=== PATIENT | female | born 1980 ===

== ENCOUNTER 2020-06-15 17:44 | Outpatient (REF) | payer MEDICAID, SELFPAY ==
--- NOTE | 2020-06-15 18:15 | MR_ITS ---
EXAMINATION: MR LUMBAR SPINE WITHOUT CONTRAST CLINICAL INFORMATION: Mononeuropathy of the bilateral lower limbs. COMPARISON: Lumbar spine radiographs from 09/14/2009. TECHNIQUE: MRI of the lumbar spine was obtained using routine sequences without contrast. FINDINGS: Normal anatomic alignment. The vertebral body heights are maintained. The intervertebral disc height and signal is largely maintained. Minimal degenerative disc disease from T12-L1. Minimal endplate edema within the anterior superior corners of L2, L3, and L5 and anterior inferior corner of L4. Otherwise, normal homogeneous marrow signal throughout. The conus medullaris terminates at the level of L1. The distal spinal cord is normal in appearance. No significant abnormalities of the paraspinal musculature. Limited evaluation of the intra-abdominal structures without significant abnormalities. The abdominal aorta is of normal contour and caliber. AXIAL SPINAL LEVELS: L1-L2: Normal annular contour. There is no facet joint arthropathy. There is no neural foraminal stenosis. There is no spinal canal stenosis. L2-L3: Shallow diffuse disc bulge. There is no facet joint arthropathy. There is no neural foraminal stenosis. There is no spinal canal stenosis. L3-L4: Shallow diffuse disc bulge. There is no facet joint arthropathy. There is no neural foraminal stenosis. There is no spinal canal stenosis. L4-L5: Mild diffuse disc bulge. There is mild to moderate bilateral facet joint arthropathy. Tiny (0.2 cm) T2 hyperintense synovial cyst posterior to the left facet joint. There is minimal narrowing of the neural foramina bilaterally. There is no spinal canal stenosis. L5-S1: Mild diffuse disc bulge. There is mild to moderate bilateral facet joint arthropathy. There is minimal narrowing of the neural foramina bilaterally. There is no spinal canal stenosis. MR/MR lumbar spine wo con IMPRESSION: Minimal multilevel degenerative changes of the lumbar spine. No evidence of spinal canal stenosis or nerve root compression.
== END 2020-06-15 17:45 | disposition home or self-care (01) ==
LOC: HO.MRI 17:44
PROVIDERS: PCP Nurse Practitioner Primary Care; Visit Provider Nurse Practitioner Primary Care
DX: G57.93 Unspecified mononeuropathy of bilateral lower limbs (principal); M54.41 Lumbago with sciatica, right side; M54.42 Lumbago with sciatica, left side
CPT/HCPCS: 72148

== ENCOUNTER 2021-03-15 09:35 | Emergency (ER) | payer MEDICAID, SELFPAY ==
--- NOTE | ~2021-03-15 | CT_ITS ---
EXAMINATION: CT ABDOMEN AND PELVIS WITHOUT CONTRAST CLINICAL INFORMATION: Right flank pain. Hematuria COMPARISON: None TECHNIQUE: Multidetector volumetric imaging was performed from the superior aspect of the liver through the pubic symphysis. Sagittal and coronal reformatted images were obtained on the technologist's workstation. This CT examination was performed using dose optimization techniques as appropriate, variously including the following: *Automated exposure control *Adjustment of mA and/or kV according to patient size (this includes techniques or standardized protocols for targeted exams where dose is matched to indication/reason for exam; i.e. extremities or head) *Use of iterative reconstruction technique DLP: 269 mGy-cm FINDINGS: LUNG BASES: The visualized lung bases are unremarkable. LIVER, GALLBLADDER, AND BILIARY TREE: The liver is normal in size, shape, and attenuation. There are several hyperdense lesions in the right and left hepatic lobe the largest measuring 6 mm right central hepatic lobe axial image 9/3. These are most likely small cyst. No intrahepatic ductal dilatation seen. The gallbladder is unremarkable with no evidence of radiopaque gallstones, gallbladder wall thickening, or obvious pericholecystic inflammatory changes. PANCREAS: Unremarkable. SPLEEN: Unremarkable. ADRENAL GLANDS: Unremarkable. KIDNEYS AND URETERS: The kidneys are normal in size, shape, and attenuation. No hydronephrosis, hydroureter, or calculi seen. No perinephric stranding. BLADDER: Unremarkable. GASTROINTESTINAL TRACT: There is scattered stool and gas seen throughout the colon. There is a radiopaque density seen in the right lower quadrant suspicious for an appendicolith but no inflammatory changes seen. The appendix is not seen at all. ABDOMINAL WALL: No significant hernia is appreciated. LYMPH NODES: Normal. VASCULAR: Unremarkable. PELVIC VISCERA: The uterus is anteverted and appears unremarkable. OSSEOUS STRUCTURES: Unremarkable. CT/CT abdomen pelvis wo con IMPRESSION: Moderate to significant constipation. Radiopaque density in right lower quadrant is likely appendicolith however appendix is not visualized. There is no inflammatory changes right lower quadrant. There is no free fluid in the pelvis.
[2021-03-15 10:27] VITALS: BP 135/73; PULSE 71; RESP 16; TEMP 37.1; O2SAT 100; BMI 21.6
--- NOTE | 2021-03-15 11:10 | ED_ITS ---
HPI - Female Genitourinary General Chief complaint: Urogenital-Female Stated complaint: flank pain Time Seen by Provider: 03/15/21 11:10 Source: patient Mode of arrival: ambulatory Limitations: no limitations History of Present Illness HPI Narrative: completed 7 days of bactrim starting 02/17 no relief from symptoms - saw PCP MD elicited complaint: other (bilateral flank pain hematuria dysuria) Pertinent past history: recurrent UTIs Onset (ago): day(s) (7) Location of symptoms: suprapubic and low back Severity: moderate Quality of pain: aching Consistency: constant Urinary symptoms: Dysuria and Hematuria Exacerbating factors: none Relieving factors: urination Associated symptoms: nausea and back pain Related Data Previous Rx's Medication Instructions Recorded docusate sodium 100 mg capsule 100 mg PO BID PRN #30 cap 03/15/21 (Colace) magnesium citrate 150 ml PO BID PRN #296 ml 03/15/21 ondansetron 4 mg disintegrating 4 mg PO Q8H PRN #20 tab 03/15/21 tablet sennosides 8.6 mg capsule (senna) 8.6 mg PO BEDTIME PRN #30 cap 03/15/21 Allergies Allergy/AdvReac Type Severity Reaction Status Date / Time iodine [IODINE] Allergy Unknown PER MD Unverified 04/08/20 16:41 iodine Allergy Unknown Facial/Throat Uncoded 12/25/17 00:00 Swelling SEAFOOD Allergy Unknown ANAPHYLAXIS Uncoded 04/08/20 16:41 shellfish Allergy Unknown Facial/Throat Uncoded 12/25/17 00:00 Swelling Review of Systems Review of Systems: Constitutional : No Fever, No Chills ENT/Mouth : No sore throat Eyes: No Eye Pain, No Swelling, No Redness Cardiovascular : No Chest Pain, No SOB Respiratory : No Cough, No Sputum, No Wheezing Gastrointestinal : positive Nausea, no Vomiting, No Diarrhea, positive abdominal pain Genitourinary : positive Dysuria, positive urinary frequency, positive Hematuria, positive Flank Pain, no hesitancy Musculoskeletal : No joint pain, No Myalgias Skin : No Skin Lesions, No rash Neuro : No Weakness, No Numbness, No Headache Psych : No Anxiety/Panic, No Depression Heme/Lymph: No Bruising, No Lymphadenopathy Endocrine : No Polyuria, No Polydipsia All other systems reviewed and are negative [facility] Past Medical History Attestation statement: The following information was validated with the patient. Medical History Asthma Herpes Hypothyroid Lyme disease Surgical History Tubal ligation status Social History Social History Alcohol intake: current Alcohol intake frequency: holidays/special occasions only Patient Tobacco Use Status: Never used Tobacco Use of substances other than those prescribed or required for medical reasons: Yes Substance Use Type: Marijuana Advance Directives: No Advance Directives Information Provided: No Patient : No Physical Exam Vital Signs: Vital Signs: Last Vital Signs Temp 99.0 F 03/15/21 12:41 Pulse 72 03/15/21 12:41 Resp 27 H 03/15/21 12:41 BP 100/44 L 03/15/21 12:41 Pulse Ox 99 03/15/21 12:41 Body Mass Index 21.6 Appearance: Alert. Oriented X3. No acute distress. Eyes: Pupils equal, round and reactive to light. ENT: Pharynx normal. Neck: Normal inspection. Neck supple. CVS: Normal heart rate and rhythm. Pulses normal. Respiratory: No respiratory distress. Breath sounds normal. Abdomen: Soft and mild suprapubic ttp mild bilateral CVA ttp Skin: Skin warm and dry. Normal skin color. Normal skin turgor. Extremities: No lower extremity edema. No calf ttp Neuro: Oriented X 3. No motor deficit. No sensory deficit. Course Course Course Narrative: UA clear likely constipation causing her issues MDM - Female Genitourinary MDM Narrative Medical decision making narrative: 40 yo female with hx of recent UTI completed abx still c/o urinary symptoms and c/o flank pain at this time labs, repeat UA, CT scan for stone, dispo per results and findings. Lab Data Result diagrams: 03/15/21 11:27 03/15/21 11:27 Labs: Lab Results 03/15/21 03/15/21 03/15/21 Range/Units 11:07 11:07 11:27 WBC 5.9 (4.8-10.8) X10*3/uL RBC 4.07 L (4.20-5.50) X10*6/uL Hgb 11.7 L (12.0-16.0) g/dl Hct 35.5 L (37-47) % MCV 87.2 (80-98) fL MCH 28.7 (27.0-33.0) pg MCHC 33.0 (31.0-35.0) g/dl RDW 12.7 (11.0-16.0) % Plt Count 206 (160-400) X10*3/uL MPV 10.5 (9.4-12.3) fL Immature Gran % (Auto) 0.2 (0.0-0.4) % Neut % (Auto) 58.4 (45-73) % Lymph % (Auto) 30.1 (20-40) % [place] % (Auto) 8.8 (2-11) % Eos % (Auto) 2.2 (0-4) % Baso % (Auto) 0.3 (0-2) % Lymph # (Auto) 1.8 (1.2-4.9) X10*3/uL [place] # (Auto) 0.5 (0.1-1.2) X10*3/uL Eos # (Auto) 0.1 (0.0-0.4) X10*3/uL Baso # (Auto) 0.0 (0.0-0.2) X10*3/uL Abs Immat Gran (auto) 0.01 (0.00-0.03) X10*3/uL Absolute Neuts (auto) 3.5 (2.0-8.3) X10*3/uL Absolute Nucleated RBC 0.000 (0.0-0.012) X10*3/uL Nucleated RBC % (auto) 0.0 (0.0-0.2) /100WBC Sodium (135-145) mmol/L Potassium (3.3-5.1) mmol/L Chloride (96-108) mmol/L Carbon Dioxide (22-29) mmol/L Anion Gap (12-20) BUN (9-16) mg/dL Creatinine (0.5-1.4) mg/dL Estim Creat Clear Calc Estimated GFR Random Glucose (60-115) mg/dL Calcium (8.4-10.2) mg/dL Magnesium (1.6-2.6) mg/dL Total Bilirubin (0.0-1.0) mg/dL Direct Bilirubin (0.0-0.5) mg/dL AST (5-31) U/L ALT (0-31) U/L Alkaline Phosphatase (39-117) U/L Total Protein (6.5-8.0) g/dL Albumin (3.5-5.0) g/dL Lipase (8-78) U/L Urine Color YELLOW Urine Appearance CLOUDY Urine pH 7.5 (5.0-8.0) Ur Specific [place] 1.020 (1.005-1.025) Urine Protein NEG (NEG-TRACE) MG/DL Urine Glucose (UA) NEG (NEG) MG/DL Urine Ketones NEG (NEG) MG/DL Urine Blood NEG (NEG) Urine Nitrite NEG (NEG) Ur Leukocyte Esterase NEG (NEG) Urine RBC 0 (0) /HPF Urine WBC 0-2 (0-4) /HPF Ur Squamous Epith Cells 1+ /LPF Amorphous Sediment 3+ /LPF Urine Bacteria 1+ /LPF Urine Test NEGATIVE (NEGATIVE) 03/15/21 Range/Units 11:27 WBC (4.8-10.8) X10*3/uL RBC (4.20-5.50) X10*6/uL Hgb (12.0-16.0) g/dl Hct (37-47) % MCV (80-98) fL MCH (27.0-33.0) pg MCHC (31.0-35.0) g/dl RDW (11.0-16.0) % Plt Count (160-400) X10*3/uL MPV (9.4-12.3) fL Immature Gran % (Auto) (0.0-0.4) % Neut % (Auto) (45-73) % Lymph % (Auto) (20-40) % [place] % (Auto) (2-11) % Eos % (Auto) (0-4) % Baso % (Auto) (0-2) % Lymph # (Auto) (1.2-4.9) X10*3/uL [place] # (Auto) (0.1-1.2) X10*3/uL Eos # (Auto) (0.0-0.4) X10*3/uL Baso # (Auto) (0.0-0.2) X10*3/uL Abs Immat Gran (auto) (0.00-0.03) X10*3/uL Absolute Neuts (auto) (2.0-8.3) X10*3/uL Absolute Nucleated RBC (0.0-0.012) X10*3/uL Nucleated RBC % (auto) (0.0-0.2) /100WBC Sodium 138 (135-145) mmol/L Potassium 3.9 (3.3-5.1) mmol/L Chloride 105 (96-108) mmol/L Carbon Dioxide 24 (22-29) mmol/L Anion Gap 13 (12-20) BUN 13 (9-16) mg/dL Creatinine 0.70 (0.5-1.4) mg/dL Estim Creat Clear Calc 64.1 Estimated GFR > 60 Random Glucose 92 (60-115) mg/dL Calcium 9.5 (8.4-10.2) mg/dL Magnesium 2.1 (1.6-2.6) mg/dL Total Bilirubin 0.4 (0.0-1.0) mg/dL Direct Bilirubin 0.2 (0.0-0.5) mg/dL AST 17 (5-31) U/L ALT 10 (0-31) U/L Alkaline Phosphatase 50 (39-117) U/L Total Protein 7.1 (6.5-8.0) g/dL Albumin 4.3 (3.5-5.0) g/dL Lipase 52 (8-78) U/L Urine Color Urine Appearance Urine pH (5.0-8.0) Ur Specific [place] (1.005-1.025) Urine Protein (NEG-TRACE) MG/DL Urine Glucose (UA) (NEG) MG/DL Urine Ketones (NEG) MG/DL Urine Blood (NEG) Urine Nitrite (NEG) Ur Leukocyte Esterase (NEG) Urine RBC (0) /HPF Urine WBC (0-4) /HPF Ur Squamous Epith Cells /LPF Amorphous Sediment /LPF Urine Bacteria /LPF Urine Test (NEGATIVE) Discharge Plan Discharge Clinical Impression: Constipation Patient Disposition: Home, Self-Care Instructions: Constipation (ED) Additional Instructions: return to ED for any worsening symptoms or concerns there were no stones and no UTI, you have a significant amount of constipation on CT scan Prescriptions: New docusate sodium [Colace] 100 mg capsule 100 mg PO BID PRN (Reason: constipation) Qty: 30 RF: 0 ondansetron 4 mg tablet,disintegrating 4 mg PO Q8H PRN (Reason: nausea and vomiting) Qty: 20 RF: 0 senna 8.6 mg capsule 8.6 mg PO BEDTIME PRN (Reason: constipation) Qty: 30 RF: 0 magnesium citrate Solution 150 ml PO BID PRN (Reason: constipation) Qty: 296 RF: 0 Stand Alone Forms: Work/School Release
[2021-03-15 11:17] LABS: Glucose Urine UA NEG (NEG); Leukocyte Esterase Urine NEG (NEG); Nitrite Urine NEG (NEG); PH 7.5 (5.0-8.0); Urine Blood NEG (NEG); Urine Ketones NEG (NEG); Urine Protein NEG (NEG-TRACE)
[2021-03-15 11:23] LABS: UPreg QC Valid YES; Urine Pregnancy NEGATIVE (NEGATIVE)
[2021-03-15 11:24] LABS: Appearance Urine CLOUDY; Color Urine YELLOW
[2021-03-15] MEDS: Ondansetron ODT 4 MG TAB.RAPDIS TRANSLINGU (11:31)
[2021-03-15 11:38] LABS: MANUAL DIFF FLAG NO
[2021-03-15 11:40] LABS: Basophils Percent Auto 0.3 % (0-2); Eosinophils Absolute Auto 0.1 X10*3/uL (0.0-0.4); Eosinophils Percent Auto 2.2 % (0-4); Hematocrit 35.5 % (37-47); Hemoglobin 11.7 g/dl (12.0-16.0); Imm Gran Abs Auto 0.01 X10*3/uL (0.00-0.03); Imm Gran Pct Auto 0.2 % (0.0-0.4); Lymphocytes Absolute Auto 1.8 X10*3/uL (1.2-4.9); Lymphocytes Percent Auto 30.1 % (20-40); Mean Corpuscular Hemoglobin 28.7 pg (27.0-33.0); Mean Corpuscular Volume 87.2 fL (80-98); Mean Platelet Volume 10.5 fL (9.4-12.3); Monocytes Absolute Auto 0.5 X10*3/uL (0.1-1.2); Monocytes Percent Auto 8.8 % (2-11); Neutrophils Absolute Auto 3.5 X10*3/uL (2.0-8.3); Neutrophils Percent Auto 58.4 % (45-73); Platelet Count 206 X10*3/uL (160-400); Red Blood Count 4.07 X10*6/uL (4.20-5.50); Red Cell Distribution Width 12.7 % (11.0-16.0); White Blood Count 5.9 X10*3/uL (4.8-10.8)
[2021-03-15 11:45] LABS: Amorphous Sediment Urine 3+ /LPF; Bacteria Urine 1+ /LPF; RBC Urine 0 /HPF (0); Squamous Epithelial Cell Urine 1+ /LPF; WBC Urine 0-2 /HPF (0-4)
[2021-03-15] MEDS: Phenazopyridine HCL 200 MG TABLET PO (11:47)
[2021-03-15] MEDS: HYDROcodone Bit/Acetam 5/325 TABLET 1 TAB PO (11:48)
[2021-03-15 12:06] LABS: Alanine Aminotransferase 10 U/L (0-31); Albumin Level 4.3 g/dL (3.5-5.0); Alkaline Phosphatase 50 U/L (39-117); Anion Gap 13 (12-20); Aspartate Amino Transferase 17 U/L (5-31); Bilirubin Direct 0.2 mg/dL (0.0-0.5); Bilirubin Total 0.4 mg/dL (0.0-1.0); Blood Urea Nitrogen 13 mg/dL (9-16); Calcium 9.5 mg/dL (8.4-10.2); Carbon Dioxide 24 mmol/L (22-29); Chloride 105 mmol/L (96-108); Creatinine Clr Calc Pharmacy 64.1; Estimated Glomerular Filt Rate > 60; Glucose Random 92 mg/dL (60-115); Lipase 52 U/L (8-78); Magnesium 2.1 mg/dL (1.6-2.6); Potassium 3.9 mmol/L (3.3-5.1); Sodium 138 mmol/L (135-145); Total Protein 7.1 g/dL (6.5-8.0)
[2021-03-15 12:41] VITALS: BP 100/44; PULSE 72; RESP 27; TEMP 37.2; O2SAT 99
== END 2021-03-15 13:38 | disposition home or self-care (01) ==
PROVIDERS: Emergency Provider Emergency Medicine
DX: K59.00 Constipation, unspecified (principal); R10.30 Lower abdominal pain, unspecified
CPT/HCPCS: 36415; 74176; 80048; 80076; 81001; 81025; 83690; 83735; 85025; 99284

== ENCOUNTER 2021-05-12 16:18 | Outpatient (REF) | payer MEDICAID, SELFPAY ==
--- NOTE | ~2021-05-12 | XR_ITS ---
EXAMINATION: XR LUMBOSACRAL SPINE WITH OBLIQUES CLINICAL INFORMATION: Lumbago. Left-sided sciatica. COMPARISON: Lumbosacral spine done on 09/14/2009. TECHNIQUE: AP, both oblique, and lateral views of the lumbar spine. Lateral view of the lumbosacral junction. FINDINGS: The vertebral bodies and posterior elements are normal. The disc spaces are preserved and the vertebral alignment is normal. The paraspinal soft tissues are normal. Incidental note is made of radiopaque densities within the pelvis likely represent tubal ligation rings. XR/XR lumbar spine 4V min IMPRESSION: Unremarkable radiographic appearance of the lumbosacral spine, unchanged since 09/14/2009.
== END 2021-05-12 16:19 | disposition home or self-care (01) ==
LOC: HO.XRAY 16:18
PROVIDERS: Absent Provider Nurse Practitioner Primary Care; PCP Nurse Practitioner Primary Care; Visit Provider Internal Medicine
DX: M54.42 Lumbago with sciatica, left side (principal)
CPT/HCPCS: 72110

== ENCOUNTER 2021-06-27 13:09 | Outpatient (REF) | payer MEDICAID, SELFPAY ==
[2021-06-28 05:51] LABS: CT PCR NOT DETECTED (Not Detect.); NG PCR NOT DETECTED (Not Detect.)
[2021-06-28 10:21] LABS: BV Int Neg Control Negative (Negative); BV Int Pos Control Positive (Positive)
== END 2021-06-27 13:10 | disposition home or self-care (01) ==
LOC: HO.LAB 13:09
PROVIDERS: PCP Nurse Practitioner Primary Care; Visit Provider Advanced Practice Midwife
DX: R35.0 Frequency of micturition (principal); N89.8 Other specified noninflammatory disorders of vagina; M54.9 Dorsalgia, unspecified; Z20.2 Contact with and (suspected) exposure to infections with a predominantly sexual mode of transmission
CPT/HCPCS: 81025; 87086; 87480; 87491; 87510; 87591; 87660; 99212

== ENCOUNTER 2021-12-15 14:59 | Emergency (ER) | payer MEDICAID, SELFPAY ==
--- NOTE | ~2021-12-15 | XR_ITS ---
EXAMINATION: XR CHEST CLINICAL INFORMATION: Epigastric pain. COMPARISON: None TECHNIQUE: Frontal view of the chest was obtained. FINDINGS: No significant abnormality is noted involving the heart, lungs, mediastinum, bony thorax or soft tissues. XR/XR chest 1V IMPRESSION: No acute cardiopulmonary process.
[2021-12-15 15:40] VITALS: BP 112/69; PULSE 66; RESP 18; TEMP 36.9; O2SAT 100; BMI 21.3
--- NOTE | 2021-12-15 15:43 | ECG_ITS ---
Test Reason : CHEST DISCOMFORT Blood Pressure : / mmHG Vent. Rate : 059 BPM Atrial Rate : 059 BPM P-R Int : 144 ms QRS Dur : 074 ms QT Int : 428 ms P-R-T Axes : 057 053 041 degrees QTc Int : 423 ms Sinus bradycardia Otherwise normal ECG When compared with ECG of 07-NOV-2013 19:11, No significant change was found Referred By: Generic ED Physician Electronically Signed By:Mehrdad Rudolph
[2021-12-15 16:54] LABS: MANUAL DIFF FLAG NO
[2021-12-15 16:56] LABS: Basophils Percent Auto 0.3 % (0-2); Eosinophils Absolute Auto 0.2 X10*3/uL (0.0-0.4); Eosinophils Percent Auto 3.4 % (0-4); Hematocrit 35.6 % (37.0-47.0); Hemoglobin 11.5 g/dl (12.0-16.0); Imm Gran Abs Auto 0.01 X10*3/uL (0.00-0.03); Imm Gran Pct Auto 0.1 % (0.0-0.4); Lymphocytes Absolute Auto 2.3 X10*3/uL (1.2-4.9); Lymphocytes Percent Auto 31.7 % (20-40); Mean Corpuscular HGB Conc 32.3 g/dl (31.0-35.0); Mean Corpuscular Hemoglobin 28.5 pg (27.0-33.0); Mean Corpuscular Volume 88.3 fL (80.0-98.0); Monocytes Absolute Auto 0.7 X10*3/uL (0.1-1.2); Monocytes Percent Auto 10.1 % (2-11); Neutrophils Absolute Auto 3.9 x10*3/uL (2.0-8.3); Neutrophils Percent Auto 54.4 % (45-73); Platelet Count 227 X10*3/uL (160-400); Red Blood Count 4.03 X10*6/uL (4.20-5.50); Red Cell Distribution Width 12.7 % (11.0-16.0); White Blood Count 7.1 X10*3/uL (4.8-10.8)
[2021-12-15 17:12] LABS: Alanine Aminotransferase 11 U/L (0-31); Albumin Level 4.3 g/dL (3.5-5.0); Alkaline Phosphatase 45 U/L (39-117); Anion Gap 11 (12-20); Aspartate Amino Transferase 18 U/L (5-31); Bilirubin Total 0.6 mg/dL (0.0-1.0); Blood Urea Nitrogen 16 mg/dL (9-16); Calcium 9.4 mg/dL (8.4-10.2); Carbon Dioxide 27 mmol/L (22-29); Chloride 106 mmol/L (96-108); Creatinine Clr Calc Pharmacy 61.3; Estimated Glomerular Filt Rate > 60; Glucose Random 94 mg/dL (60-115); Potassium 3.9 mmol/L (3.3-5.1); Sodium 140 mmol/L (135-145); Total Protein 7.3 g/dL (6.5-8.0)
[2021-12-15 17:17] LABS: COVID-19 Test Negative (Negative); IDNOW Serial# 16C4AD1C; Influenza A Negative (Negative); Influenza B2 Negative (Negative)
[2021-12-15 17:17] LABS: Troponin-I High Sensitivity < 3.5 ng/L (<3.5-17.0)
== END 2021-12-15 21:25 | disposition left against medical advice (07) ==
PROVIDERS: Emergency Provider Emergency Medicine; PCP Nurse Practitioner Primary Care
DX: R07.89 Other chest pain (principal); Z20.822 Contact with and (suspected) exposure to COVID-19
CPT/HCPCS: 71045; 80053; 84484; 85025; 87502; 87635; 93005; 99281; 99283

== ENCOUNTER → 2022-05-25 13:58 | Outpatient (BNVA) | payer OTHER, SELFPAY | PROVIDERS: PCP Nurse Practitioner Primary Care; Visit Provider Physician Assistant Medical | DX: M25.512 Pain in left shoulder (principal); M54.2 Cervicalgia | CPT/HCPCS: 99203 ==

== ENCOUNTER 2022-08-03 09:48 | Outpatient (REF) | payer MEDICAID, SELFPAY ==
[2022-08-08 16:30] LABS: HPV mRNA E6/E7 rflx Not Detected (Not Detected)
== END 2022-08-03 09:49 | disposition home or self-care (01) ==
LOC: HO.LNP 09:48
PROVIDERS: PCP Nurse Practitioner Primary Care; Visit Provider Advanced Practice Midwife
DX: Z01.419 Encounter for gynecological examination (general) (routine) without abnormal findings (principal); Z11.51 Encounter for screening for human papillomavirus (HPV); Z87.42 Personal history of other diseases of the female genital tract
CPT/HCPCS: 0353U; 86780; 86803; 87340; 87389; 87480; 87510; 87624; 87660; 88142

== ENCOUNTER 2022-08-03 10:41 | Outpatient (REF) | payer MEDICAID, SELFPAY ==
[2022-08-03 15:29] LABS: CT PCR NOT DETECTED (Not Detect.); NG PCR NOT DETECTED (Not Detect.)
[2022-08-04 08:39] LABS: HBsAGNum1 0.33 S/CO (0.00-0.99); HIV AB/AG Nonreactive (Nonreactive); HIV Num 1 0.07 S/CO (0.00-0.99); Hepatitis B Surface Antigen Negative (Negative); ~HepC Num1 0.27 S/CO (0.00-0.79); ~Hepatitis C Antibody Nonreactive (Nonreactive)
[2022-08-04 08:55] LABS: Syphilis Screen Nonreactive (Nonreactive)
[2022-08-04 12:30] LABS: BV Int Neg Control Negative (Negative); BV Int Pos Control Positive (Positive)
== END 2022-08-03 10:42 | disposition home or self-care (01) ==
LOC: HO.LAB 10:41
PROVIDERS: PCP Nurse Practitioner Primary Care; Visit Provider Advanced Practice Midwife
DX: Z11.3 Encounter for screening for infections with a predominantly sexual mode of transmission (principal); Z11.4 Encounter for screening for human immunodeficiency virus [HIV]
CPT/HCPCS: 0353U; 86780; 86803; 87340; 87389; 87480; 87510; 87660

== ENCOUNTER 2023-06-26 10:36 | Outpatient (REF) | payer MEDICAID, SELFPAY ==
[2023-06-26 18:16] LABS: CT PCR NOT DETECTED (Not Detect.); NG PCR NOT DETECTED (Not Detect.)
[2023-06-27 14:21] LABS: BV Int Neg Control Negative (Negative); BV Int Pos Control Positive (Positive)
== END 2023-06-26 10:37 | disposition home or self-care (01) ==
LOC: HO.LNP 10:36
PROVIDERS: PCP Nurse Practitioner Primary Care; Visit Provider Advanced Practice Midwife
DX: N92.6 Irregular menstruation, unspecified (principal); Z11.3 Encounter for screening for infections with a predominantly sexual mode of transmission; Z32.02 Encounter for pregnancy test, result negative; Z79.899 Other long term (current) drug therapy; Z87.42 Personal history of other diseases of the female genital tract
CPT/HCPCS: 0353U; 81025; 87480; 87510; 87660; 99212

== ENCOUNTER 2023-06-26 10:36 | Outpatient (AMB) | payer MEDICAID, SELFPAY ==
[2023-06-26 10:41] VITALS: BP 132/80; BMI 22.8
--- NOTE | 2023-06-26 10:41 | MHC.OFFVIS ---
Intake Vital Signs 06/26/23 10:41 Height 4 ft 7 in Weight 98 lb BMI 22.8 BP 132/80 Intake Visit Reasons: std testing Intake Note: STD testing and blood work Senior Technical Support Engineer Required: No Information Interpreted: non-clinical & clinical Human Resources Director: Human Resources Director Present (Klaudia) Allergies iodine [IODINE] Allergy (Unknown, Verified 06/26/23 10:44) PER MD iodine Allergy (Unknown, Uncoded 06/26/23 10:44) Facial/Throat Swelling SEAFOOD Allergy (Unknown, Uncoded 06/26/23 10:44) ANAPHYLAXIS shellfish Allergy (Unknown, Uncoded 06/26/23 10:44) Facial/Throat Swelling Medication List - Last Reconciled 06/26/23 by Susan Deleon CNM baclofen 10 mg PO BID cholecalciferol (vitamin D3) 25 mcg PO DAILY cholecalciferol (vitamin D3) (Vitamin D3) 50 mcg PO DAILY duloxetine 30 mg PO QAM ferrous gluconate 225 mg PO DAILY oxycodone-acetaminophen 5-325 mg 1 tab PO Q6H PRN tramadol 50 mg PO BID PRN valacyclovir (Valtrex) 500 mg PO Q12H vitamin B complex (B Complex-Vitamin B12 tablet) 1 tab PO DAILY Is last menstrual period known: Yes Last menstrual period: 05/23/23 Post menopausal: No HPI std testing HPI Details Patient is here for STD testing she is not have any particular symptoms but she said she had a situation and she just wants to get checked she said that she has had her tubes tied but also she had had a positive test followed by a negative and so she wants that checked as well test done at the beginning of this visit is now negative. Her last menstrual period was May 23 so she has a little bit late. [facility] Medical History Neuropathy Depression Lyme disease Hypothyroid Herpes Asthma Surgical History Tubal ligation status Social History Alcohol intake: current Alcohol intake frequency: holidays/special occasions only Patient Tobacco Use Status: Never used Tobacco Substance Use Type: Marijuana Gender identity: Female Female Reproductive History Menstrual Age of Menarche: 15 Date of last menstrual period: 05/23/23 control method: other (tubal ligation) Total pregnancies: 4 Full term: 2 Number of Living Children: 2 Ab induced: 2 Date of last pap smear: 08/03/22 (negative) History of abnormal pap smear: Yes (2017 2008 2007 ASCUS, 2008 DOROTHY 1) Physical Exam Vital Signs: Last Vital Signs BP 132/80 06/26/23 10:41 BMI result Body Mass Index 22.8 External Female Exam: normal external appearance and normal appearance of the urethra Speculum Exam - Vagina: normal appearance of the vagina and normal vaginal discharge Speculum Exam - Cervix: normal appearance of the cervix and Cervical os closed Results AMB Test Urine AMB Test Urine Negative Last Edit by MERE Montiel on 06/26/23 10:52 Results Reviewed Results Reviewed: Name: Becki Torres Age/Sex: 41/F Attending: Susan Deleon CNM : 1980 Submitted by: Susan Deleon CNM Copies to: HEAV[facility] OTTO NP MR #: [id number] Status: DEP REF Collected: 08/03/22 Location: [facility] Received: 08/03/22 Interpretation Satisfactory for evaluation. Negative for intraepithelial lesion or malignancy. HPV mRNA E6/E7: NOT DETECTED This assay detects E6/E7 viral messenger RNA (mRNA) from 14 high-risk HPV types (16, 18, 31, 33, 35, 39, 45, 51, 52, 56, 58, 59, 66, 68) HPV testing performed by [employer], [place], [place]. See reference laboratory portion of the EMR for entire report. Clinical Information LMP: 07/24/22 Previous PAP test: 12/26/2017, Abnormal Material Received ThinPrep-Cervical Copies To Susan Deleon [address] [place] [address] HEAVEN OTTO NP [address] [facility] [address] [place] [address] Electronically Signed By: Hetal Iqbal 08/13/22 [id number] The Pap Test is a screening procedure with the inherent possibility of both false negative and false positive results. Results should be interpreted in the context of historic and current clinical findings. Reliability of the Pap Test is enhanced by performing the test on a regular repetitive basis. Patient: Becki Torres Age/Sex: 41/F MR#: [id number] Page 1 of 1 Preg test done here negative. Assessment & Plan Assessment & Plan (1) Hx of abnormal cervical Pap smear: Comment: 08/03/2022 Pap is negative with negative HPV. Code(s): Z87.42 - Personal history of other diseases of the female genital tract (2) Screen for sexually transmitted diseases: Code(s): Z11.3 - Encounter for screening for infections with a predominantly sexual mode of transmission (3) Late menses: Comment: preg test neg Code(s): N92.6 - Irregular menstruation, unspecified Plan Testing done for gonorrhea chlamydia trichomoniasis Gardnerella and Sweta. Her exam is completely normal testing ordered at her request for HIV hep B hep C and syphilis patient will go to the lab now. She says she is on the portal so she can obtain negative results there would call her her if anything were positive. test is negative.. Orders: Orders AMB HCG Urine Test Today Z32.02 - Encounter for test, result negative Hepatitis B Surface Antigen Today N92.6 - Irregular menstruation, unspecified, Z11.3 - Encounter for screening for infections with a predominantly sexual mode of transmission, Z87.42 - Personal history of other diseases of the female genital tract Hepatitis C Antibody Today N92.6 - Irregular menstruation, unspecified, Z11.3 - Encounter for screening for infections with a predominantly sexual mode of transmission, Z87.42 - Personal history of other diseases of the female genital tract HIV Ab/Ag Today N92.6 - Irregular menstruation, unspecified, Z11.3 - Encounter for screening for infections with a predominantly sexual mode of transmission, Z87.42 - Personal history of other diseases of the female genital tract Syphilis Screen Today N92.6 - Irregular menstruation, unspecified, Z11.3 - Encounter for screening for infections with a predominantly sexual mode of transmission, Z87.42 - Personal history of other diseases of the female genital tract Coding Level of Care Code Est Pt Level 3 (37926) Diagnoses Hx of abnormal cervical Pap smear Z87.42 Screen for sexually transmitted diseases Z11.3 Late menses N92.6
== END 2023-06-26 11:44 | disposition home or self-care (01) ==
LOC: HO.HWS 10:36
PROVIDERS: PCP Nurse Practitioner Primary Care; Visit Provider Advanced Practice Midwife
DX: Z87.42 Personal history of other diseases of the female genital tract (principal); Z11.3 Encounter for screening for infections with a predominantly sexual mode of transmission; N92.6 Irregular menstruation, unspecified; Z32.02 Encounter for pregnancy test, result negative
CPT/HCPCS: 99213

== ENCOUNTER 2023-12-03 12:04 | Outpatient (REF) | payer MEDICAID, SELFPAY ==
[2023-12-03 13:35] VITALS: BP 105/68; PULSE 73; RESP 16; TEMP 37.2; O2SAT 100
[2023-12-03 13:43] VITALS: BMI 21.8
[2023-12-03 14:43] VITALS: BP 136/65; PULSE 71; O2SAT 99
== END 2023-12-03 12:05 | disposition home or self-care (01) ==
LOC: HO.MS 12:04
PROVIDERS: PCP Nurse Practitioner Primary Care; Visit Provider Ophthalmology
PROC: (CPT 67840; principal; 2023-12-03 14:20)
DX: D23.111 Other benign neoplasm of skin of right upper eyelid, including canthus (principal)
CPT/HCPCS: 67840; 88304; 88305

== ENCOUNTER 2023-12-05 09:38 | Outpatient (REF) | payer MEDICAID, SELFPAY ==
[2023-12-06 02:09] LABS: CT PCR NOT DETECTED (Not Detect.); NG PCR NOT DETECTED (Not Detect.)
[2023-12-06 11:51] LABS: Bacterial Vaginosis PCR NEGATIVE (Negative); Candida Group PCR DETECTED (Not Detect); Candida glab krusei PCR NOT DETECTED (Not Detect); Trichomonas vaginalis PCR NOT DETECTED (Not Detect)
[2023-12-12 05:24] LABS: HPV 16 RNA NOT DETECTED (NOT DETECTED); HPV mRNA E6/E7 rflx Detected (Not Detected)
== END 2023-12-05 09:39 | disposition home or self-care (01) ==
LOC: HO.LAB 09:38
PROVIDERS: PCP Nurse Practitioner Primary Care; Visit Provider Advanced Practice Midwife
DX: Z01.419 Encounter for gynecological examination (general) (routine) without abnormal findings (principal); B37.31 Acute candidiasis of vulva and vagina; N63.12 Unspecified lump in the right breast, upper inner quadrant; N63.10 Unspecified lump in the right breast, unspecified quadrant; Z20.2 Contact with and (suspected) exposure to infections with a predominantly sexual mode of transmission; Z12.39 Encounter for other screening for malignant neoplasm of breast; Z98.51 Tubal ligation status; Z87.42 Personal history of other diseases of the female genital tract
CPT/HCPCS: 0352U; 0353U; 87624; 87625; 88142; 99396

== ENCOUNTER 2023-12-05 09:38 | Outpatient (AMB) | payer MEDICAID, SELFPAY ==
[2023-12-05 09:41] VITALS: BP 100/60; BMI 21.1
--- NOTE | 2023-12-05 09:41 | MHC.OFFVIS ---
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: Renewable Energy Division Manager Present Allergies iodine [IODINE] Allergy (Unknown, Verified 12/05/23 09:41) PER MD iodine Allergy (Unknown, Uncoded 12/05/23 09:41) Facial/Throat Swelling SEAFOOD Allergy (Unknown, Uncoded 12/05/23 09:41) ANAPHYLAXIS shellfish Allergy (Unknown, Uncoded 12/05/23 09:41) Facial/Throat Swelling Medication List - Last Reconciled 12/05/23 by Susan Deleon CNM amoxicillin 500 mg PO BID cholecalciferol (vitamin D3) 25 mcg PO DAILY cholecalciferol (vitamin D3) (Vitamin D3) 50 mcg PO DAILY oxycodone-acetaminophen 5-325 mg 1 tab PO Q6H PRN tramadol 50 mg PO BID PRN valacyclovir (Valtrex) 500 mg PO Q12H vitamin B complex (B Complex-Vitamin B12 tablet) 1 tab PO DAILY Is last menstrual period known: Yes Last menstrual period: 11/03/23 Do you need a note to return to daycare/school/sports/work: No PFSH Medical History Neuropathy Depression Lyme disease Hypothyroid Herpes Asthma Surgical History Tubal ligation status Social History Alcohol intake: current Alcohol intake frequency: holidays/special occasions only Patient Tobacco Use Status: Never used Tobacco Substance Use Type: Marijuana Gender identity: Female Female Reproductive History Menstrual Age of Menarche: 15 Duration of menses: 3-5 days Date of last menstrual period: 11/03/23 control method: permanent sterilization Total pregnancies: 4 Full term: 2 Date of last pap smear: 06/12/23 (negative) History of abnormal pap smear: Yes (2018,abn,2009 DOROTHY 1,2008 ASCUS) Physical Exam Vital Signs: Last Vital Signs BP 100/60 12/05/23 09:41 BMI result Body Mass Index 21.1 Const General: healthy appearing, comfortable, no acute distress, well developed and alert Nutritional Appearance: average body habitus Orientation/consciousness: patient oriented x3 Limitations: no limitations HEENT Other: Patient is visibly congested sinus infection Additionally she has scabbed area extending from right eyebrow towards nose where mole was just removed. Head: Yes normocephalic Neck Neck: Yes normal visual inspection Chest Other: Irregular masses palpable left breast 01:00 o'clock firm, irregular masses right breast also 0100 o'clock Chest palpation & inspection: normal inspection of the chest Breast/axilla inspection: normal inspection of the breasts and normal inspection of the axillae Breast/axilla palpation: normal palpation of the breasts, normal palpation of the axillae and other Chest/axillae images: 1. Firm larger rubbery mass right breast 01:00 o'clock 2. Smaller irregularities right breast 3. Less firm mass left breast Resp Effort & Inspection: normal respiratory effort GI Inspection: Yes normal to inspection, No Abdominal wall edema and No distended Palpation (GI): Soft to palpation and nontender Other: Vulvar reddened at labia minora with cottage cheesy discharge consistent with yeast cervix multiparous pink smooth firm uterus anteverted mobile nontender good tone with Kegel General: Yes bladder normal to palpation External Female Exam: normal external appearance and normal appearance of the urethra Speculum Exam - Vagina: normal appearance of the vagina, normal palpation and normal vaginal discharge Speculum Exam - Cervix: normal appearance of the cervix, normal palpation and nontender Bimanual exam- vagina & uterus: normal bimanual exam, normal palpation, uterine size normal, bladder normal to palpation, consistency normal, normal palpation, uterine mobility normal, uterine shape normal, No Cervical tenderness present, non-tender and no cervical motion tenderness Bimanual Exam- Adnexa, other: normal adnexae, no masses, normal and No adnexal tenderness Neuro General: patient oriented x3 Assessment & Plan Assessment & Plan (1) Tubal ligation status: Code(s): Z98.51 - Tubal ligation status Category: Surgical (2) Hx of abnormal cervical Pap smear: Comment: 08/03/2022 Pap is negative with negative HPV. Code(s): Z87.42 - Personal history of other diseases of the female genital tract Category: Medical (3) Screen for sexually transmitted diseases: Code(s): Z11.3 - Encounter for screening for infections with a predominantly sexual mode of transmission Category: Medical (4) Breast cancer screening: Code(s): Z12.39 - Encounter for other screening for malignant neoplasm of breast Category: Medical (5) Yeast infection of the vagina: Comment: Is on amoxicillin for sinus infection, will treat with Diflucan and Monistat. Code(s): B37.31 - Acute candidiasis of vulva and vagina Category: Medical (6) Breast mass: Comment: Both breasts both left and right around 01:00 o'clock firm rubbery, diagnostic studies ordered and breast surgery referral as well. Code(s): N63.0 - Unspecified lump in unspecified breast Category: Medical Plan -----Discussed in this visit the following: healthy balanced diet, regular and consistent exercise, getting recommended health screens, doing the best she can for her particular health concerns, kegel exercises, pap smear screening and followup recommendations, mammography screening and SBE, normal changes in cycles in her life stage--- . Was going to order screening mammogram anyway but given findings of breast masses will order diagnostic studies and ultrasounds as well and as well place breast surgery referral for follow-up. Pap smear done after discussion of history of abnormals with patient- for peace of mind Pap repeated today. if this 1 is negative can revert to ascap guidelines for screening Since she is still on the antibiotic and will be for a few more days I am ordering Diflucan and she can repeat the dose in 3 days if still symptomatic and in addition Monistat cream because it can be very soothing. Additionally, recommend lots of fluids to help her with the sinus infection and also to consider cam boot or some other source of probiotics. Discussed limiting dairy and yogurt as other sources of probiotics while fighting sinus infection. Orders: Orders CT NG by PCR Today Z01.419 - Encounter for gynecological examination (general) (routine) without abnormal findings Bacterial Vaginosis Panel Today N63.0 - Unspecified lump in unspecified breast, Z20.2 - Contact with and (suspected) exposure to infections with a predominantly sexual mode of transmission Pap Smear Today Z01.419 - Encounter for gynecological examination (general) (routine) without abnormal findings MM tomosynthesis diagnostic BI Today N63.0 - Unspecified lump in unspecified breast US breast LT complete Today N63.0 - Unspecified lump in unspecified breast US breast RT complete Today N63.0 - Unspecified lump in unspecified breast Referrals Breast Surgery Referral N63.0 - Unspecified lump in unspecified breast Medications: New fluconazole may repeat second dose 72 hrs after first dose if symptoms persist 150 mg PO Q3D 2 doses 2 tabs 1RF miconazole nitrate 2% (Miconazole-7) 1 appful vaginal BEDTIME 7 days 45 grams 2RF Coding Level of Care Code Est Pt Prev Care 40-64y(73433) Diagnoses Tubal ligation status Z98.51 Hx of abnormal cervical Pap smear Z87.42 Screen for sexually transmitted diseases Z11.3 Breast cancer screening Z12.39 Yeast infection of the vagina B37.31 Breast mass N63.0
== END 2023-12-05 11:08 | disposition home or self-care (01) ==
PROVIDERS: PCP Nurse Practitioner Primary Care; Visit Provider Advanced Practice Midwife
DX: Z98.51 Tubal ligation status (principal); Z87.42 Personal history of other diseases of the female genital tract; Z11.3 Encounter for screening for infections with a predominantly sexual mode of transmission; Z12.39 Encounter for other screening for malignant neoplasm of breast; B37.31 Acute candidiasis of vulva and vagina; N63.0 Unspecified lump in unspecified breast
CPT/HCPCS: 99396

== ENCOUNTER 2023-12-12 09:00 | Outpatient (REF) | payer MEDICAID, SELFPAY ==
--- NOTE | ~2023-12-12 | MM_ITS ---
EXAMINATION: MM DIAGNOSTIC DIGITAL BREAST TOMOSYNTHESIS, BILATERAL US BREAST LIMITED, BILATERAL MAMMOGRAPHY: CLINICAL INFORMATION: 43-year-old female complaining of bilateral palpable foci at the 1:00 axes of both breasts, and also cysts smaller firm areas right breast 9:00 to 11:00 axis. Baseline mammogram. COMPARISON: Mammography: None. Baseline. TECHNIQUE: Digital breast tomosynthesis is performed in both the craniocaudal and mediolateral oblique views along with computer-aided detection (CAD). Synthesized 2D images are generated from the tomosynthesis. In addition, full-field bilateral 3-D ML views were also included. FINDINGS: The breasts are extremely dense, which lowers the sensitivity of mammography (ACR BI-RADS breast composition Category d). Both breasts were marked with BB markers by the technologist with the aid of the patient, at the bilateral 1:00 axes, and the right 9:00 axis. No definite underlying mass or distortion can be identified in either breast which can be reliably distinguished from the extremely dense breast parenchyma. No suspicious calcifications identified. No skin or axillary abnormalities. ULTRASOUND: CLINICAL INFORMATION: As above. COMPARISON: None. Baseline exam. TECHNIQUE: Targeted sonographic evaluation was performed using a high frequency linear transducer. Attention to both breasts in the palpable regions of concern upper outer quadrants was performed. Selected archived documentation. FINDINGS: RIGHT BREAST: -There is extremely dense fibrocystic tissue present. There are numerous small cysts, the largest a bilobed simple cyst at the 10:00 axis, 4 cm from the nipple, without complicating features. A second 1.0 cm simple cyst is present at the 1:00 axis, 4 cm from the nipple. There is a minimally complex circumscribed cyst with good through transmission at 10:00, 8 cm from the nipple, measuring 7 mm in diameter, benign. The patient appears to be feeling dense ridges of tissue as opposed to these small cysts. LEFT BREAST: -There is extremely dense fibrocystic tissue present. There are numerous small cysts, the largest measuring 9 mm in diameter by 1.0 cm, simple and benign. Several smaller cysts are present. The patient appears to be feeling a ridge of fibrocystic tissue as opposed to individual cysts. There are no suspicious regions in either breast, suspicious masses, or abnormal regions of shadowing. MM/MM tomosynthesis diagnostic BI IMPRESSION: -There are no findings suspicious for malignancy in either breast. There is extremely dense breast tissue present. -Palpable abnormalities appear to be related to fibrocystic ridges of tissue as opposed to individual simple cyst. There are no suspicious abnormalities. -Recommend clinical management. Otherwise recommend returning to routine screening in one year. -In patients with this breast density, screening breast ultrasound may serve as a valuable screening adjunct, depending on risk factors and usually performed 6 months in between screening mammography exams. OVERALL ASSESSMENT: Mammography: BI-RADS 2 - Benign Findings Ultrasound: BI-RADS 2 - Benign Findings RECOMMENDATION: 1 year F/U Results were provided to the patient at time of visit by the technologist. This patient's information was entered into a reminder system with a target due date for their next mammogram.
== END 2023-12-12 09:01 | disposition home or self-care (01) ==
LOC: HO.MAMMO 09:00
PROVIDERS: PCP Nurse Practitioner Primary Care; Visit Provider Advanced Practice Midwife
DX: N63.15 Unspecified lump in the right breast, overlapping quadrants (principal); N63.25 Unspecified lump in the left breast, overlapping quadrants
CPT/HCPCS: 76642; 77062; 77066

== ENCOUNTER → 2023-12-12 09:00 | Outpatient (BNV) | payer MEDICAID, SELFPAY | PROVIDERS: PCP Nurse Practitioner Primary Care; Visit Provider Radiology Diagnostic Radiology | DX: N63.15 Unspecified lump in the right breast, overlapping quadrants (principal); N63.21 Unspecified lump in the left breast, upper outer quadrant | CPT/HCPCS: 76642; 77062; 77066 ==

== ENCOUNTER 2024-04-03 15:28 | Outpatient (AMB) | payer SELFPAY ==
[2024-04-03 15:48] VITALS: BMI 21.8
--- NOTE | 2024-04-03 15:48 | MHC.OFFVIS ---
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: Salesperson Hearing Aids Present (Morenita SEVERINO) Accompanied by: Self / Same As Patient Allergies iodine [IODINE] Allergy (Unknown, Verified 04/03/24 15:59) PER MD iodine Allergy (Unknown, Uncoded 04/03/24 15:59) Facial/Throat Swelling SEAFOOD Allergy (Unknown, Uncoded 04/03/24 15:59) ANAPHYLAXIS shellfish Allergy (Unknown, Uncoded 04/03/24 15:59) Facial/Throat Swelling Is last menstrual period known: Yes Last menstrual period: 03/31/24 HPI Comments Details: Presenting for colposcopy for Pap smear showing ascus/HPV E6/E7 positive [facility] Medical History Neuropathy Depression Lyme disease Hypothyroid Herpes Asthma Surgical History Tubal ligation status Social History Alcohol intake: current Alcohol intake frequency: holidays/special occasions only Patient Tobacco Use Status: Never used Tobacco Substance Use Type: Marijuana Gender identity: Female Female Reproductive History Menstrual Age of Menarche: 15 Date of last menstrual period: 03/31/24 control method: permanent sterilization Review of Systems Const All systems reviewed & are unremarkable except as noted in HPI and below Reports as per HPI and Reports no additional complaints GI Reports no additional complaints Reports no additional complaints Office Procedures Colposcopy Colposcopy: Pre-Procedure Counseling: Before beginning the procedure, I conducted comprehensive counseling with the patient. We thoroughly discussed the procedure itself, including its details, alternatives, and all associated risks. This included but not limited to the following complications such as bleeding, infection, and injury to the vagina, bladder, and vessels, as well as the potential need for transfusion with all its associated risks. Subsequently, the patient sign the consent. Pap smear result: Ascus/HPV E6/E7 positive. Urine test in office = Negative Procedure: During the procedure, the following steps were performed: A speculum was inserted, and acetic acid was applied. Colposcopy was conducted, allowing visualization of the transformation zone. Acetowhite lesions were identified at the 11+12+1 o'clock position. Cervical biopsies were obtained from the 11+12+1 o'clock position, followed by an endocervical curettage (ECC). Vaginoscopy of the upper vagina revealed no evidence of aceto-white lesions. Hemostasis was achieved using Monsel solution, and the patient tolerated the procedure well. Post-Procedure Instructions: The patient was advised to promptly contact the office or the after hours answering service or go to the emergency room if experiencing a temperature exceeding 100.4?F, abdominal pain, nausea/vomiting, or bleeding. Additionally, the patient was instructed to abstain from vaginal intercourse and bathtub use. The patient confirmed understanding of these instructions. Discharge Instructions: The patient was instructed to schedule a follow-up appointment in 2 weeks for further evaluation and management. Please note that this note was generated using a voice recognition program, and errors may have occurred during plaster foreman. [id number] of cervix including upper vagina with biopsy and ECC Procedure code (CPT) selection complete Results AMB Test Urine AMB Test Urine Negative Last Edit by Morenita Cooper CMA on 04/03/24 15:58 Assessment & Plan Assessment & Plan (1) ASCUS with positive high risk HPV cervical: Code(s): R87.610 - Atypical squamous cells of undetermined significance on cytologic smear of cervix (ASC-US); R87.810 - Cervical high risk human papillomavirus (HPV) DNA test positive Category: Medical Plan: Discussed with the patient the result of her abnormal pap, its significance, risk of progression, persistence, and regression. the false positive/negative rate of a Pap smear as a screening test in detecting cervical cancer and the indication for a diagnostic test -colposcopy, biopsy, endocervical curettage. The patient verbalized understanding and agreed with the plan, all questions answered. Colposcopy/biopsy/ECC done, see procedure note Orders: Orders AMB HCG Urine Test Today Z32.02 - Encounter for test, result negative AMB Colposcopy Today R87.610 - Atypical squamous cells of undetermined significance on cytologic smear of cervix (ASC-US), R87.810 - Cervical high risk human papillomavirus (HPV) DNA test positive Coding Level of Care Code Procedure Only Diagnoses ASCUS with positive high risk HPV cervical R87.610; R87.810 CPT Codes Colposcopy - CPT: 77283-[id number] of cervix including upper vagina with biopsy and ECC ([id number])
== END 2024-04-03 16:10 | disposition home or self-care (01) ==
PROVIDERS: PCP Nurse Practitioner Primary Care; Visit Provider Obstetrics & Gynecology
DX: R87.610 Atypical squamous cells of undetermined significance on cytologic smear of cervix (ASC-US) (principal); R87.810 Cervical high risk human papillomavirus (HPV) DNA test positive; Z32.02 Encounter for pregnancy test, result negative
CPT/HCPCS: 57454

== ENCOUNTER 2024-04-03 15:28 | Outpatient (REF) | payer OTHER, SELFPAY | END 2024-04-03 15:29 | disposition home or self-care (01) | LOC: HO.LNP 15:28 | PROVIDERS: PCP Nurse Practitioner Primary Care; Visit Provider Obstetrics & Gynecology | DX: R87.610 Atypical squamous cells of undetermined significance on cytologic smear of cervix (ASC-US) (principal); R87.810 Cervical high risk human papillomavirus (HPV) DNA test positive | CPT/HCPCS: 57454; 81025; 88305; 88312 ==

== ENCOUNTER 2024-04-17 14:57 | Outpatient (AMB) | payer SELFPAY ==
--- NOTE | 2024-04-17 15:04 | A.OFFVIS_ITS ---
Vital Signs 04/17/24 15:05 Height 4 ft 7 in Weight 92 lb 9.506 oz BMI 21.5 Intake Visit Reasons: colpo results Allergies iodine [IODINE] Allergy (Unknown, Verified 04/03/24 15:59) PER MD iodine Allergy (Unknown, Uncoded 04/03/24 15:59) Facial/Throat Swelling SEAFOOD Allergy (Unknown, Uncoded 04/03/24 15:59) ANAPHYLAXIS shellfish Allergy (Unknown, Uncoded 04/03/24 15:59) Facial/Throat Swelling HPI Comments Details: Presenting post colpo for follow-up. The patient is doing well with no complaints. The pathology showed the following: A. Endocervix, curettage: Endocervical glandular and scant squamous mucosa; negative for dysplasia. B. Cervix, 1:00, biopsy: Squamous mucosa with focal inflamed mild atypia; negative for dysplasia; no endocervical glandular component present. C. Cervix, 11:00, biopsy: Squamous and endocervical glandular mucosa with inflammation and reactive and metaplastic changes; negative for dysplasia. D. Cervix, 12:00, biopsy: Squamous mucosa with focal inflamed mild atypia, and endocervical glandular epithelium; negative for dysplasia. Comment: (B and D): The scant inflamed and mildly atypical epithelium is suspicious for low-grade dysplasia. There is no evidence of high-grade dysplasia. The rare atypical cells in the patient's previous Pap test ([id number] 943) are similar to the atypical cells in the current biopsy [facility] Medical History Neuropathy Depression Lyme disease Hypothyroid Herpes Asthma Surgical History Tubal ligation status Social History Alcohol intake: current Alcohol intake frequency: holidays/special occasions only Patient Tobacco Use Status: Never used Tobacco Substance Use Type: Marijuana Gender identity: Female Female Reproductive History Menstrual Age of Menarche: 15 Review of Systems Const All systems reviewed & are unremarkable except as noted in HPI and below Reports as per HPI and Reports no additional complaints GI Reports no additional complaints Reports no additional complaints Physical Exam Vital Signs: BMI result Body Mass Index 21.5 Assessment & Plan Assessment & Plan (1) ASCUS with positive high risk HPV cervical: Comment: Colpo biopsy possible DOROTHY 1 Code(s): R87.610 - Atypical squamous cells of undetermined significance on cytologic smear of cervix (ASC-US); R87.810 - Cervical high risk human papillomavirus (HPV) DNA test positive Category: Medical Plan: Discussed with the patient the pathology results of the colposcopy biopsies & endocervical curettage ( possible mild dysplasia-DOROTHY 1). Discussed with the patient the sensitivity specificity, positive and negative predictive value in detecting cervical cancer in addition discussed the regression, persistence and progression rates. Recommended co-testing in 12 months, if cytology and or HPV are abnormal will proceed was colposcopy biopsy and endocervical curettage. Instructions given to the patient to schedule a co test appointment in 1 year. All questions answered the patient verbalized understanding. Coding Level of Care Code Est Pt Level 3 (20573) Diagnoses ASCUS with positive high risk HPV cervical R87.610; R87.810
[2024-04-17 15:05] VITALS: BMI 21.5
== END 2024-04-17 15:12 | disposition home or self-care (01) ==
LOC: HO.HWS 14:57
PROVIDERS: PCP Nurse Practitioner Primary Care; Visit Provider Obstetrics & Gynecology
DX: R87.610 Atypical squamous cells of undetermined significance on cytologic smear of cervix (ASC-US) (principal); R87.810 Cervical high risk human papillomavirus (HPV) DNA test positive
CPT/HCPCS: 99213

== ENCOUNTER → 2024-04-17 14:57 | Outpatient (BNVA) | payer MEDICAID, SELFPAY | PROVIDERS: PCP Nurse Practitioner Primary Care; Visit Provider Obstetrics & Gynecology | DX: R87.610 Atypical squamous cells of undetermined significance on cytologic smear of cervix (ASC-US) (principal); R87.810 Cervical high risk human papillomavirus (HPV) DNA test positive | CPT/HCPCS: 99212 ==

== ENCOUNTER 2024-04-25 12:08 | Outpatient (REF) | payer MEDICAID, SELFPAY ==
--- NOTE | ~2024-04-25 | XR_ITS ---
EXAMINATION: XR ELBOW, RIGHT CLINICAL INFORMATION: RIGHT ELBOW PAIN HIT ELBOW ON CAR DOOR 2 MONTHS AGO STILL PAINFUL .PT STATES PAIN IS WITH EXTENSION AND SUPINATION OF HAND. COMPARISON: Right forearm radiograph 05/23/2014 TECHNIQUE: AP, lateral, and oblique views of the right elbow. FINDINGS: The bones and soft tissues are normal. No fracture or joint effusion. Alignment is anatomic. Joint spaces are maintained. XR/XR elbow RT min 3V IMPRESSION: Normal right elbow. Electronically signed by: Linda Ta DO 04/25/2024 01:52 PM EDT
== END 2024-04-25 12:09 | disposition home or self-care (01) ==
LOC: HO.HHCX 12:08
PROVIDERS: Visit Provider Nurse Practitioner Primary Care
DX: M25.521 Pain in right elbow (principal)
CPT/HCPCS: 36415; 73080; 80048; 82306; 82607; 83540; 83735; 84443; 85025; 86592; 86704; 86706; 86780; 86803; 87340; 87389; 87491; 87591

== ENCOUNTER 2024-04-25 13:52 | Outpatient (REF) | payer MEDICAID, SELFPAY ==
[2024-04-25 16:10] LABS: MANUAL DIFF FLAG NO
[2024-04-25 16:13] LABS: Basophils Percent Auto 0.5 % (0-2); Eosinophils Absolute Auto 0.2 X10*3/uL (0.0-0.4); Eosinophils Percent Auto 2.9 % (0-4); Hematocrit 34.2 % (37.0-47.0); Hemoglobin 11.4 g/dl (12.0-16.0); Imm Gran Abs Auto 0.01 X10*3/uL (0.00-0.03); Imm Gran Pct Auto 0.2 % (0.0-0.4); Lymphocytes Absolute Auto 1.8 X10*3/uL (1.2-4.9); Lymphocytes Percent Auto 32.4 % (20-40); Mean Corpuscular HGB Conc 33.3 g/dl (31.0-35.0); Mean Corpuscular Hemoglobin 29.1 pg (27.0-33.0); Mean Corpuscular Volume 87.2 fL (80.0-98.0); Mean Platelet Volume 11.1 fL (9.4-12.3); Monocytes Absolute Auto 0.4 X10*3/uL (0.1-1.2); Neutrophils Absolute Auto 3.1 x10*3/uL (2.0-8.3); Platelet Count 240 X10*3/uL (160-400); Red Blood Count 3.92 X10*6/uL (4.20-5.50); Red Cell Distribution Width 12.6 % (11.0-16.0); White Blood Count 5.5 X10*3/uL (4.8-10.8)
[2024-04-25 17:49] LABS: Vitamin B12 377 pg/mL (200-900)
[2024-04-25 17:57] LABS: Anion Gap 9 (12-20); Blood Urea Nitrogen 13 mg/dL (9-16); Carbon Dioxide 26 mmol/L (22-29); Chloride 107 mmol/L (96-108); Estimated Glomerular Filt Rate > 60; Glucose Random 90 mg/dL (60-115); Iron 86 mcg/dL (30-160); Percent Iron Saturation 39 % (15-50); Potassium 3.2 mmol/L (3.3-5.1); Sodium 139 mmol/L (135-145); Total Iron Binding Capacity 223 mcg/dL (228-428); Unsaturated Iron Binding 137 ug/dL
[2024-04-25 18:05] LABS: TSH reflex Free T4 0.55 uIU/mL (0.32-4.0); Vitamin D 25-OH Total 40.3 ng/mL (>30)
[2024-04-27 09:39] LABS: CT PCR NOT DETECTED (Not Detect.); NG PCR NOT DETECTED (Not Detect.)
[2024-04-28 04:10] LABS: Syphilis Screen Nonreactive (Nonreactive)
[2024-04-28 04:13] LABS: HBsAGNum1 0.34 S/CO (0.00-0.99); HIV AB/AG Nonreactive (Nonreactive); HIV Num 1 0.05 S/CO (0.00-0.99); Hepatitis B Surface Antigen Negative (Negative); ~HepC Num1 0.43 S/CO (0.00-0.79); ~Hepatitis C Antibody Nonreactive (Nonreactive)
[2024-04-28 04:18] LABS: HBS Num1 345.86 mIU/mL (0-7.99); Hepatitis B Core Antibody Nonreactive (Nonreactive); ~HepC Num1 0.37 S/CO (0.00-0.79); ~Hepatitis B Surface Antibody REACTIVE (Nonreactive); ~Hepatitis C Antibody Nonreactive (Nonreactive)
[2024-04-28 09:33] LABS: Magnesium 2.1 mg/dL (1.6-2.6)
[2024-04-28 22:44] LABS: RPR Rapid Plasma Reagin NON-REACTIVE (NON-REACTIVE)
== END 2024-04-25 13:53 | disposition home or self-care (01) ==
LOC: HO.HHCL 13:52
PROVIDERS: Referring Provider Advanced Practice Midwife; Visit Provider Nurse Practitioner Primary Care
DX: Z00.00 Encounter for general adult medical examination without abnormal findings (principal); Z87.42 Personal history of other diseases of the female genital tract; N92.6 Irregular menstruation, unspecified; R53.83 Other fatigue; E87.6 Hypokalemia; Z11.3 Encounter for screening for infections with a predominantly sexual mode of transmission
CPT/HCPCS: 36415; 80048; 82306; 82607; 83540; 83735; 84443; 85025; 86592; 86704; 86706; 86780; 86803; 87340; 87389; 87491; 87591

== ENCOUNTER 2024-05-09 11:18 | Outpatient (REF) | payer MEDICAID, SELFPAY ==
[2024-05-09 13:53] LABS: Anion Gap 10 (12-20); Blood Urea Nitrogen 13 mg/dL (9-16); Calcium 8.9 mg/dL (8.4-10.2); Carbon Dioxide 28 mmol/L (22-29); Chloride 105 mmol/L (96-108); Estimated Glomerular Filt Rate > 60; Glucose Random 90 mg/dL (60-115); Potassium 3.8 mmol/L (3.3-5.1); Sodium 139 mmol/L (135-145)
== END 2024-05-09 11:19 | disposition home or self-care (01) ==
LOC: HO.HHCL 11:18
PROVIDERS: Visit Provider Nurse Practitioner Primary Care
DX: E87.6 Hypokalemia (principal)
CPT/HCPCS: 36415; 80048

== ENCOUNTER 2024-06-25 16:24 | Outpatient (REF) | payer MEDICAID, SELFPAY | END 2024-06-25 16:25 | disposition home or self-care (01) | LOC: HO.HHCLNP 16:24 | PROVIDERS: Visit Provider Family Medicine | DX: J06.9 Acute upper respiratory infection, unspecified (principal) | CPT/HCPCS: 36415 ==

== ENCOUNTER 2025-05-01 16:19 | Outpatient (REF) | payer OTHER, SELFPAY ==
[2025-05-02 03:14] LABS: CT PCR NOT DETECTED (Not Detect.); NG PCR NOT DETECTED (Not Detect.)
== END 2025-05-01 16:20 | disposition home or self-care (01) ==
LOC: HO.HHCLNP 16:19
PROVIDERS: Visit Provider Nurse Practitioner Primary Care
DX: Z20.2 Contact with and (suspected) exposure to infections with a predominantly sexual mode of transmission (principal)
CPT/HCPCS: 87491; 87591

== ENCOUNTER 2025-05-06 09:02 | Outpatient (REF) | payer OTHER, SELFPAY ==
--- OUTSIDE RECORDS SUMMARY | 2025-05-01 14:30 | XMS_ITS | Encounter Summary ---
Author Organization [employer] Address [address] [facility] [address] [place] [address] Care Team Providers Care Senior Service Technician Name Role Phone Adelia Light Primary Care Provider [phone] Reason for Visit * Reason Comments Annual Exam Encounter Details Date Type Department Care Team (Late st Contact Info) Description 05/01/2025 2:30 PM EDT Office Visit [facility] [address], [place] [phone] Adelia Light ANP [address], [place] [phone] Encounter for immunization (Primary Dx); Hypothyroidism, unspecified type; Mixed anxiety depressive disorder; Healthcare maintenance; Routine screening for STI (sexually transmitted infection); Lipid screening; B12 deficiency; Vitamin D deficiency; Non-seasonal allergic rhinitis due to other allergic trigger; Shellfish allergy; Herpes simplex infection; Mild intermittent reactive airway disease without complication Social History Tobacco Use Types Packs/Day Years Used Date Smoking Tobacco: Former Cigarettes 1 15 Passive Smoke Exposure: Past Smokeless Tobacco: Never Alcohol Use Standard Drinks/Week Comments Yes 0 (1 standard drink = 0.6 oz pur e alcohol) socially Depression Answer Date Recorded Patient Health Questionnaire-9 Score 6 05/01/2025 Patient Health Questionnaire-9 Score 6 05/01/2025 Last PHQ-9: Questionnaire Data Not on file 1 Housing Stability Answer Date Recorded What is your housing situation today? I have doc em 04/25/[address] you li ve. Do you have problems with any of the following? None of the above 04/25/2024 Food Insecurity Answer Date Recorded Within the past 12 months, y ou worried that your food would run out before you got money to buy more: Never True 04/25/2024 Within the past 12 months,th e food you bought just didn't last and you didn't have enough money to get more: Never True 10/2023 Transportation Answer Date Recorded In the past 12 months, has l ack of transportation kept you from medical appts, meetings, work or from getting things needed for daily living? No 04/25/2024 Utilities Answer Date Recorded In the past 12 months, has t he electric, gas, oil or water company threatened to shut off services in your home? No 04/24/2025 Depression Answer Date Recorded Patient Health Questionnaire-2 Score 2 05/01/2025 Internet Access Answer Date Recorded Internet Access Q1 Yes 04/25/2024 Internet Access Q2 Not on file 04/25/2024 Comments Unknown Sex and Gender Information Value Date Recorded Sex Assigned at Female 05/22/2022 10:15 AM EDT Legal Sex Female 10:15 AM EDT Gender Identity Female 05/22/2022 10:15 AM EDT Sexual Orientation Straight 05/22/2022 10 :15 AM EDT documented as of this encounter Last Filed Vital Signs Vital Sign Reading Time Taken Comments Blood Pressure 120/70 05/01/2025 2:47 PM EDT Pulse 67 05/01/2025 2:47 PM EDT Temperature 36.6 C (97.9 F) 05/01/2025 2:47 PM EDT Respiratory Rate 11 05/01/2025 2:47 PM EDT Oxygen Saturation 99% 05/01/2025 2:47 PM EDT Inhaled Oxygen Concentration - - Weight 43.3 kg (95 lb 8 oz) 05/01/2025 2:47 PM E DT Height 134.6 cm (4' 5 ) 05/01/2025 2:47 PM EDT Body Mass Index 23.9 05/01/2025 2:47 PM EDT documented in this encounter Functional Status * Over the past 2 weeks, how often have you been bothered by any of the following problems? Question Answer Date of Assessment Author Patient Health Questionnaire -2 Score 2 05/01/2025 3:40 PM EDT Zeeshan De Leon MA * Little interest or pleasure in doing things Answer Date of Assessment Author Several days 05/01/2025 3:40 PM EDT Jazlyn De Leon MA * Feeling down, depressed, or hopeless Answer Date of Assessment Author Several days 05/01/2025 3:40 PM EDT Jazlyn De Leon MA * Trouble falling or staying asleep, or sleeping too much Answer Date of Assessment Author Several days 05/01/2025 3:40 PM EDT Jazlyn De Leon MA * Feeling tired or having little energy Answer Date of Assessment Author Several days 05/01/2025 3:40 PM EDT Jazlyn De Leon MA * Poor appetite or overeating Answer Date of Assessment Author Several days 05/01/2025 3:40 PM EDT Jazlyn De Leon MA * Feeling bad about yourself - or that you are a failure or have let yourself or your family down Answer Date of Assessment Author Not at all 05/01/2025 3:40 PM EDT Jazlyn De Leon MA * Trouble concentrating on things, such as reading the newspaper or watching television Answer Date of Assessment Author Several days 05/01/2025 3:40 PM EDT Jazlyn De Leon MA * Moving or speaking so slowly that other people could have noticed? Or the opposite - being so fidgety or restless that you have been moving around a lot more than usual. Answer Date of Assessment Author Not at all 05/01/2025 3:40 PM EDT Jazlyn De Leon MA * Thoughts that you would be better off or hurting yourself in some way Answer Date of Assessment Author Not at all 05/01/2025 3:40 PM EDT Jazlyn De Leon MA * Patient Health Questionnaire-9 Score Answer Date of Assessment Author 6 05/01/2025 3:40 PM EDT Jazlyn De Leon MA * Over the last 2 weeks, how often have you been bothered by any of the following problems? Question Answer Date of Assessment Author Feeling nervous, anxious, or on edge 1 05/01/2025 3:40 PM EDT Zeeshan De Leon MA Not being able to stop or co ntrol worrying 2 05/01/2025 3:40 PM BLAIRT Zeeshan De Leon MA Worrying too much about diff erent things 2 05/01/2025 3:40 PM BLAIRT Zeeshan De Leon MA Trouble relaxing 1 05/01/2025 3:40 PM EDT Zeeshan Urrutia MA Being so restless that it is hard to sit still 1 05/01/2025 3:40 PM EDT Zeeshan De Leon MA Becoming easily annoyed or irritable 1 05/01/2025 3:40 PM EDT Zeeshan De Leon MA Feeling afraid as if somethi ng awful might happen 0 05/01/2025 3:40 PM EDT Zeeshan De Leon MA DAVIN-7 Total Score 8 05/01/2025 3:40 PM EDT Zeeshan De Leon MA documented as of this encounter Progress Notes * Adelia Light, GIOVANI - 05/01/2025 2:30 PM EDT SUBJECTIVE: Becki Torres is a 44 y.o. year old female who presents for routine physical exam. Denies recent illness, injury, or hospitalization. PMH lumbar radiculopathy w/ LE neuropathy, low b12, hypothyroidism, anxiety w/ depression, allergicrhinitis, mild int asthma Acute Concerns: Sleepiness and Fatigue - Persistent sleepiness for approximately 6 weeks, occurring daily - Onset after experiencing personal stressors and changes in appetite - Appetite was off during this period, possibly affecting nutrient intake - Reports drinking enough water and attempting to improve nutrition over the past 2 weeks, but sleepiness persists - History of anemia, concerned about possible recurrence - Reports poor sleep quality during the symptomatic period, with improvement in sleep over the last2 days - Reports overthinking and mental strain contributing to sleep disturbance and low motivation - Denies current need for therapist, feels mental health is stabilizing Exercise and Motivation - Previously engaged in frequent exercise (hiking, walking, running 2-3 times daily for 1-2 hours) - Has not exercised regularly for more than 6 months - Reports lack of energy and motivation to resume exercise Vitamin Supplementation - Previously took vitamin B12, folic acid, and vitamin D supplements; last taken a couple of monthsago Dental Issues - Undergoing dental procedures including two crowns and root canals - History of tooth fracture prior to crown placement Asthma - History of asthma, no recent exacerbations reported, req refill of albuterol for prn use. 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 HENT: Negative for sore throat. Respiratory: Negative for cough and shortness of breath. Cardiovascular: Negative for chest pain. Gastrointestinal: Negative for constipation and diarrhea. Endocrine: Negative for polydipsia, polyphagia and polyuria. Genitourinary: Negative for dysuria and pelvic pain. Musculoskeletal: Negative for arthralgias. Neurological: Negative for weakness. Psychiatric/Behavioral: Positive for dysphoric mood and sleep disturbance. The patient is nervous/anxious. The patient is not hyperactive. OBJECTIVE: Vitals: 05/01/25 1447 BP: 120/70 BP Location: Right arm Patient Position: Sitting BP Cuff Size: Adult Pulse: 67 Resp: 11 Temp: 97.9 ??F (36.6 ??C) TempSrc: Oral SpO2: 99% Weight: 95 lb 8 oz (43.3 kg) Height: 4' 5 (1.346 m) Physical Exam Vitals reviewed. Constitutional: General: She is not in acute distress. Appearance: Normal appearance. She is not ill-appearing. HENT: Head: Normocephalic and atraumatic. Right Ear: Tympanic membrane, ear canal and external ear normal. Left Ear: Tympanic membrane and ear canal normal. Eyes: General: No scleral icterus. Extraocular Movements: Extraocular movements intact. Pupils: Pupils are equal, round, and reactive to light. Cardiovascular: Rate and Rhythm: Normal rate and regular rhythm. Heart sounds: No murmur heard. Pulmonary: Effort: Pulmonary effort is normal. No accessory muscle usage or respiratory distress. Breath sounds: Normal breath sounds. Musculoskeletal: Cervical back: No tenderness. Right lower leg: No edema. Left lower leg: No edema. Lymphadenopathy: Cervical: No cervical adenopathy. Skin: General: Skin is warm and dry. Neurological: Mental Status: She is alert and oriented to person, place, and time. Cranial Nerves: No cranial nerve deficit. Gait: Gait normal. Psychiatric: Mood and Affect: Mood normal. Behavior: Behavior normal. ASSESSMENT/PLAN Assessment & Plan Encounter for immunization: - Due for tetanus and influenza immunizations. - Administered tetanus and influenza vaccines. Hypothyroidism, unspecified type: - Included thyroid function tests in ordered laboratory panel. Mixed anxiety depressive disorder: - Anxiety and low motivation discussed; coping mechanisms in place; no current need for therapy or medication adjustment. - Recommended reflection on symptoms and utilization of coping strategies. Increase exercise. Healthcare maintenance: - Ordered comprehensive laboratory panel including CBC, metabolic panel, and potassium level. Confirmed ongoing dental care. Confirmed upcoming Pap smear and mammogram appointments for July 06, 2025. Anxiety and depression: coping ok, declines need for therapist referral Routine screening for STI (sexually transmitted infection): - Ordered screening for gonorrhea and chlamydia via vaginal swab, and additional tests for syphilis, HIV, and hepatitis C. Lipid screening: - Ordered lipid panel as part of laboratory workup. B12 deficiency: - Ordered B12 level as part of laboratory workup; continued monitoring. Vitamin D deficiency: - Completed one year of vitamin D supplementation. - Discontinued vitamin D supplement. Non-seasonal allergic rhinitis due to other allergic trigger: - Allergic rhinitis managed with Flonase. - Refilled Flonase prescription. Shellfish allergy: - Shellfish allergy confirmed; no EpiPen available. - Prescribed EpiPen; recommended possession of two EpiPens. Provided guidance regarding insurance and pharmacy options for EpiPen acquisition. Herpes simplex infection: - Herpes simplex infection managed; no recent flare-ups. - Refilled Valtrex prescription. Mild intermittent reactive airway disease without complication: - Asthma controlled; occasional nocturnal wheezing reported. - Refilled albuterol inhaler prescription. Prescription - Flonase nasal spray refill - Albuterol inhaler refill - Valtrex refill - EpiPen autoinjector prescription (two pens for shellfish allergy) Appointments - [facility] consultation with Dr. Andrade on July 06, 2025 - Mammogram appointment to be scheduled prior to July 06, 2025 Becki was seen today for annual exam. Diagnoses and all orders for this visit: Encounter for immunization (Primary) - FLU VACCINE TRIVALENT [id number] (Fluarix) 19 yrs + Hypothyroidism, unspecified type - TSH W/Reflex to FT4; Future Mixed anxiety depressive disorder Healthcare maintenance - CBC auto differential; Future - Comprehensive Metabolic Panel; Future Routine screening for STI (sexually transmitted infection) - Syphilis Screen; Future - HIV-1/2 Antigen and Antibodies, Fourth Generation, with Reflexes; Future - Hepatitis C Antibody with Reflex to HCV, RNA, Quantitative, Real-Time PCR; Future - Chlamydia/N. Gonorrhoeae RNA, TMA, Vagina Lipid screening - Lipid Panel, Standard; Future B12 deficiency - Vitamin B12; Future Vitamin D deficiency - Vitamin D, 25-Hydroxy, Total, Immunoassay; Future Non-seasonal allergic rhinitis due to other allergic trigger - fluticasone (Flonase) 50 MCG/ACT nasal spray; Administer 2 sprays into each nostril 2 times daily. 2 Carson in each nostril Shellfish allergy - EPINEPHrine (Epipen) 0.3 MG/0.3ML injection syringe; Inject 0.3 mL (0.3 mg) as directed 1 (one) time for 1 dose. use as directed for allergic reaction and then call 911 Herpes simplex infection Comments: valtrex refilled. asymptomatic today in this regard. Orders: - valACYclovir (Valtrex) 500 MG tablet; take 1 tablet by oral route twice daily x 3d as needed for outbreaks Mild intermittent reactive airway disease without complication - Ventolin HFA 108 (90 Base) MCG/ACT inhaler; Inhale 2 puffs every 6 (six) hours if needed for wheezing or shortness of breath. Other orders - Tdap vaccine greater than or equal to 7 years old IM This note was drafted using fitaborate ([employer]) technology. The patient/patient's guardian has been informed and has consented to the use of this technology: Yes Based on our discussion, I have outlined the following instructions for you: - You have received your tetanus and flu shots today. - Blood tests have been ordered to check your thyroid, vitamin B12, cholesterol, and other important levels. - Please take some time to think about your feelings and use your coping strategies when you feel anxious or low. - You have finished one year of vitamin D supplements, so you can stop taking them now. - Continue using Flonase for your allergies and use your new prescription as needed. - You have been prescribed two EpiPens for your shellfish allergy. Please make sure you get both EpiPens and keep them with you. If you need help with insurance or getting them from the pharmacy, usethe guidance provided. - Your Valtrex prescription for herpes simplex has been refilled. Use it as directed if you need it. - Your albuterol inhaler prescription for asthma has been refilled. Use it as needed if you have wheezing or trouble breathing. - Tests have been ordered to check for sexually transmitted infections, including gonorrhea, chlamydia, syphilis, HIV, and hepatitis C. Next appointment(s): - [facility] consultation with Dr. Andrade on July 06, 2025 - Mammogram appointment to be scheduled prior to July 06, 2025 Thank you again for your visit, and we look forward to supporting you in your journey to better health. Follow Up: 1 yr PE, visit sooner prn Current Outpatient Medications on File Prior to Visit Medication Sig Dispense Refill cetirizine (ZyrTEC) 10 MG tablet Take 1 tablet (10 mg) by mouth Once per day. 90 tablet 3 Cyanocobalamin (B-12) 1000 MCG sublingual tablet 1 tablet under tongue or swallowed once daily 90 tablet 3 [DISCONTINUED] cholecalciferol (Vitamin D-3) 50 MCG (2000 UT) tablet TAKE 1 TABLET BY MOUTH EVERY DAY 90 tablet 3 [DISCONTINUED] erythromycin (Romycin) 5 MG/GM ophthalmic ointment PLEASE SEE ATTACHED FOR DETAILED DIRECTIONS [DISCONTINUED] fluconazole (Diflucan) 150 MG tablet TAKE 1 TABLET BY MOUTH ONCE. MAY REPEAT SECOND DOSE 72 HRS AFTER FIRST DOSE IF SYMPTOMS PERSIST [DISCONTINUED] fluticasone (Flonase) 50 MCG/ACT nasal spray Administer 2 sprays into each nostril 2times daily. 2 Carson in each nostril 16 g 3 [DISCONTINUED] sodium chloride (SALINE MIST) 0.65 % nasal spray Administer 2 sprays into each nostril if needed for congestion. 44 mL 3 [DISCONTINUED] traMADol (Ultram) 50 MG tablet Take 1 tablet (50 mg) by mouth every 6 (six) hours ifneeded for severe pain. 15 tablet 0 [DISCONTINUED] valACYclovir (Valtrex) 500 MG tablet take 1 tablet by oral route twice daily x 3d asneeded for outbreaks 35 tablet 1 [DISCONTINUED] venlafaxine XR (Effexor XR) 37.5 MG 24 hr capsule Take 1 capsule (37.5 mg) by mouth Once per day. Do not crush or chew. 30 capsule 2 [DISCONTINUED] Ventolin HFA 108 (90 Base) MCG/ACT inhaler 2 puffs every 4 (four) hours if needed for wheezing or shortness of breath. No current facility-administered medications on file prior to visit. Icelandic Translation: Patient is bilingual and declines translation services [1] Patient Active Problem List Diagnosis Back pain Asthma Hypothyroidism Mixed anxiety depressive disorder Seasonal allergic rhinitis due to pollen Upper respiratory tract infection [2] History reviewed. No pertinent surgical history. [3] No family history on file. documented in this encounter Plan of Treatment Scheduled Orders Name Type Priority Associated Diagnoses Orde r Schedule CBC auto differential Lab Routine Healthcare maintenance Expected: 05/01/2025 (Approximate), Expires: 05/01/2026 Lipid Panel, Standard Lab Routine Lipid screening Expected: 05/01/2025 (Approximate), Expires: 05/01/2026 Comprehensive Metabolic Panel Lab Routine Healthcare maintenance Expected: 05/01/2025 (Approximate), Expires: 05/01/2026 TSH W/Reflex to FT4 Lab Routine Hypothyroidism, unspecified type Expected: 05/01/2025 (Approximate), Expires: 05/01/2026 Syphilis Screen Lab Routine Routine screening for STI (sexually transmitted infection) Expected: 05/01/2025, Expires: 05/01/2026 HIV-1/2 Antigen and Antibodies, Fourth Generation, with Reflexes Lab Routine Routine screening for STI (sexually transmitted infection) Expected: 05/01/2025 (Approximate), Expires: 05/01/2026 Hepatitis C Antibody with Reflex to HCV, RNA, Quantitative, Real-Time PCR Lab Routine Routine screening for STI (sexually transmitted infection) Expected: 05/01/2025 (Approximate), Expires: 05/01/2026 Vitamin B12 Lab Routine B12 deficiency Expected: 05/01/2025 (Approximate), Expires: 05/01/2026 Vitamin D, 25-Hydroxy, Total, Immunoassay Lab Routine Vitamin D deficiency Expected: 05/01/2025 (Approximate), Expires: 05/01/2026 documented as of this encounter Procedures Procedure Name Priority Date/Time Associated Diagnosis Comments CHLAMYDIA/N. GONORRHOEAE RNA, TMA, UROGENITAL Routine 05/01/2025 3:15 PM EDT Routine screening for STI (sexually transmitted infection) documented in this encounter Results * Chlamydia/N. Gonorrhoeae RNA, TMA, Vagina (05/01/2025 3:15 PM EDT) CT PCR NOT DETECTED Not Detect. [facility] Comment:A not detected test result does not exclude the possibilityof infection because test results can be affected byimproper specimen collection, concurrent antibiotic therapy,or the number of organisms in the specimen which may bebelow the sensitivity of the test. As with many diagnostictests, results from the Xpert CT/NG assay should beinterpreted in conjunction with other laboratory andclinical data available to the clinician.Xpert CT/NG performance has not been evaluated in patientsless than 14 years of age. The assay should not be used forthe evaluationof suspected sexual abuse or for other medico-legalindications. Additional testing is recommended in anycircumstance when false positive or false negative resultscould lead to adverse medical, social or psychologicalconsequences. NG PCR NOT DETECTED Not Detect. [facility] Comment:A not detected test result does not exclude the possibilityof infection because test results can be affected byimproper specimen collection, concurrent antibiotic therapy,or the number of organisms in the specimen which may bebelow the sensitivity of the test. As with many diagnostictests, results from the Xpert CT/NG assay should beinterpreted in conjunction with other laboratory andclinical data available to the clinician.Xpert CT/NG performance has not been evaluated in patientsless than 14 years of age. The assay should not be used forthe evaluationof suspected sexual abuse or for other medico-legalindications. Additional testing is recommended in anycircumstance when false positive or false negative resultscould lead to adverse medical, social or psychologicalconsequences. Swab Vaginal structure / Unknown 05/01/2025 3:15 PM EDT 05/01/2025 4:20 PM EDT [facility] MICROBIOLOGY - GENERAL ORDER BRITTNEE Final Result [facility] [address] [place] [address] [phone] documented in this encounter Visit Diagnoses Diagnosis Encounter for immunization- Primary Hypothyroidism, unspecified type Mixed anxiety depressive disorder Healthcare maintenance Routine screening for STI (sexually transmitted infection) Screening examination for venereal disease Lipid screening Screening for lipoid disorders B12 deficiency Vitamin D deficiency Non-seasonal allergic rhinitis due to other allergic trigger Shellfish allergy Allergy to seafood Herpes simplex infection Herpes simplex without mention of complication Mild intermittent reactive airway disease without complication documented in this encounter Additional Health Concerns Assessment Noted Time PHQ-9 Depression Total Score: 6 05/01/20 25 3:40 PM EDT documented as of this encounter Care Teams Senior Service Technician Relationship Specialty Start Date End Date Adelia Light ANP [address] [place] [address] PCP - General Family Medicine 03/22/20 documented as of this encounter
--- OUTSIDE RECORDS SUMMARY | 2025-05-06 09:52 | XMS_ITS | Encounter Summary ---
Author Organization [employer] Address [address] [facility] [address] [place] [address] Care Team Providers Care Salt Refiner Name Role Phone Adelia Light Primary Care Provider [phone] Encounter Details Date Type Department Care Team (Late st Contact Info) Description 11/07/2022 Orders Only [facility] [address] [place] [address] Marlen Howell LPN Social History Tobacco Use Types Packs/Day Years Used Date Smoking Tobacco: Some Days Cigarettes 1 15 Smokeless Tobacco: Never Alcohol Use Standard Drinks/Week Comments Yes 0 (1 standard drink = 0.6 oz pur e alcohol) socially Depression Answer Date Recorded Patient Health Questionnaire-9 Score 22 06/23/2022 Depression Answer Date Recorded Patient Health Questionnaire-2 Score 6 06/23/2022 Comments Unknown Sex and Gender Information Value Date Recorded Sex Assigned at Female 05/22/2022 10:15 AM EDT Legal Sex Female 10:15 AM EDT Gender Identity Female 05/22/2022 10:15 AM EDT Sexual Orientation Straight 05/22/2022 10 :15 AM EDT documented as of this encounter Plan of Treatment Not on file documented as of this encounter Visit Diagnoses Not on filedocumented in this encounter Additional Health Concerns Assessment Noted Time PHQ-9 Depression Total Score: 22 022 2:09 PM EST documented as of this encounter Care Teams Salt Refiner Relationship Specialty Start Date End Date Adelia Light ANP [address] [place] [address] PCP - General Family Medicine 03/22/20 documented as of this encounter
--- OUTSIDE RECORDS SUMMARY | 2025-05-06 09:52 | XMS_ITS | Encounter Summary ---
Author Organization [employer] Address [address] [place] [address] Care Team Providers Care Director Of Marketing [employer] Name Role Phone Adelia Light GIOVANI Primary Care Provider [phone] Encounter Details Date Type Department Care Team (Latest Contact Info) Description 05/01/2025 Travel Social History Tobacco Use Types Packs/Day Years [...] AM EDT documented as of this encounter Functional Status * Over the [...] co ntrol worrying 2 05/01/2025 3:40 PM EDT Zeeshan De Leon [place] Worrying too much about diff erent things 2 05/01/2025 3:40 PM EDT Zeeshan De Leon MA Trouble relaxing 1 05/01/2025 3:40 PM EDT R Zeeshan clark MA Being so restless that it is [...] Leon MA documented as of this encounter Plan of Treatment Not on file documented as of this encounter Visit Diagnoses Not on filedocumented in this encounter Additional Health Concerns Assessment Noted Time PHQ-9 Depression Total Score: 6 05/01/20 25 3:40 PM EDT documented as of this encounter Care Teams Director Of Marketing [employer] Relationship Specialty Start Date End Date Adelia Light ANP [address] [facility] [place] [address] PCP - General Family Medicine 03/22/20 documented as of this encounter
--- OUTSIDE RECORDS SUMMARY | 2025-05-06 09:52 | XMS_ITS | Clinical Summary ---
Author Organization [employer] Address [address] [facility] 7[address] [place] [address] Care Team Providers Care Check Totaler Name Role Phone Heaven Otto GIOVANI Primary Care Provider [phone] Allergies Active Allergy Reactions Criticality Noted Date Comments Shellfish Allergy 08/15/2022 Medications * This document contains information received from the source organization and may not represent a complete record from that organization. cetirizine (ZyrTEC) 10 MG tablet Take 1 tablet (10 mg) by mouth Once per day. 90 tablet 3 12/14/19 24 Active Cyanocobalamin (B-12) 1000 MCG sublingual tabletIndication s:Low vitamin B12 level 1 tablet under tongue or swallowed once daily 90 tablet 3 12/14/19 24 Active fluticasone (Flonase) 50 MCG/ACT nasal sprayIndications :Non-seasonal allergic rhinitis due to other allergic trigger Administer 2 sprays into each nostril 2 times daily. 2 [place] in each nostril 16 g 3 05/01/20 25 Active valACYclovir (Valtrex) 500 MG tabletIndication s:Herpes simplex infection take 1 tablet by oral route twice daily x 3d as needed for outbreaks 35 tablet 1 05/01/20 25 Active Ventolin HFA 108 (90 Base) MCG/ACT inhalerIndicatio ns:Mild intermittent reactive airway disease without complication Inhale 2 puffs every 6 (six) hours if needed for wheezing or shortness of breath. 18 g 05/01/20 25 Active EPINEPHrine (Epipen) 0.3 MG/0.3ML injection syringeIndicatio ns:Shellfish allergy Inject 0.3 mL (0.3 mg) as directed 1 (one) time for 1 dose. use as directed for allergic reaction and then call 911 2 each 1 05/01/20 25 Active valACYclovir (Valtrex) 500 MG tabletIndication s:Herpes simplex infection take 1 tablet by oral route twice daily x 3d as needed for outbreaks 35 tablet 1 08/24/19 24 2024 Discontinued(R eorder (will not trigger notification to Pharmacy)) erythromycin (Romycin) 5 MG/GM ophthalmic ointment PLEASE SEE ATTACHED FOR DETAILED DIRECTIONS 11/29/19 24 2024 Discontinued(T herapy completed) fluconazole (Diflucan) 150 MG tablet TAKE 1 TABLET BY MOUTH ONCE. MAY REPEAT SECOND DOSE 72 HRS AFTER FIRST DOSE IF SYMPTOMS PERSIST 12/05/19 24 2024 Discontinued(T herapy completed) fluticasone (Flonase) 50 MCG/ACT nasal spray Administer 2 sprays into each nostril 2 times daily. 2 [place] in each nostril 16 g 3 12/14/19 24 2024 Discontinued(R eorder (will not trigger notification to Pharmacy)) sodium chloride (SALINE MIST) 0.65 % nasal spray Administer 2 sprays into each nostril if needed for congestion. 44 mL 3 12/14/19 24 2024 Discontinued(T herapy completed) cholecalciferol (Vitamin D-3) 50 MCG (2000 UT) tablet TAKE 1 TABLET BY MOUTH EVERY DAY 90 tablet 3 12/14/19 24 2024 Discontinued(T herapy completed) venlafaxine XR (Effexor XR) 37.5 MG 24 hr capsuleIndicatio ns:Depression with anxiety Take 1 capsule (37.5 mg) by mouth Once per day. Do not crush or chew. 30 capsule 2 04/25/20 24 2024 Discontinued(T herapy completed) Ventolin HFA 108 (90 Base) MCG/ACT inhaler 2 puffs every 4 (four) hours if needed for wheezing or shortness of breath. 01/29/20 24 2024 Discontinued(R eorder (will not trigger notification to Pharmacy)) traMADol (Ultram) 50 MG tabletIndication s:Lumbar radiculopathy Take 1 tablet (50 mg) by mouth every 6 (six) hours if needed for severe pain. 15 tablet 09/23/19 25 2024 Discontinued(T herapy completed) Active Problems Problem Noted Date Diagnosed Date Upper respiratory tract infection 06/25/2024 Assessment & Plan (06/25/2024 3:32 PM EST): Flu/covid/strep negative Pt will start on augmentin BID for 10 days Pt also instructed to use conservative measures such as adequate fluid hydration, use of hot steam and humidifiers to relieve congestion, and lozenges and tea for throat discomfort. Pt will RTC PRN if symptoms worsen or do not improve Seasonal allergic rhinitis due to pollen 024 Assessment & Plan (12/18/2023 8:35 AM EDT): Given patient's persistent symptoms, physical exam findings, and lack of response to antibiotics, it is reasonable to assume that she is experiencing ear and sinus pain and pressure due to allergic rhinitis. - begin daily Cetrizine 10mg - Flonase 2 puffs BID - nasal saline for symptomatic relief - avoid exposure to symptom triggers that she can identify Hypothyroidism 08/15/2022 Mixed anxiety depressive disorder 08/15/2022 Back pain 06/09/2022 Asthma 04/23/2012 Encounters Date Type Department Care Team Description 05/04/2025 Results Follow-Up [address] [address] Heaven Otto ANP Chlamydia/N. Gonorrhoeae RNA, TMA, Vagina 05/01/2025 2:30 PM EDT Office Visit [address] [address] Heaven Otto ANP Encounter for immunization (Primary Dx); Hypothyroidism, unspecified type; Mixed anxiety depressive disorder; Healthcare maintenance; Routine screening for STI (sexually transmitted infection); Lipid screening; B12 deficiency; Vitamin D deficiency; Non-seasonal allergic rhinitis due to other allergic trigger; Shellfish allergy; Herpes simplex infection; Mild intermittent reactive airway disease without complication 05/01/2025 Travel 04/30/[address] [address] Heaven Otto ANP chart prep 04/24/2025 Patient Outreach [facility] [address] [place] [address] Heaven Otto ANP Pre-visit Planning (SDOH negative, Tobacco screening negative. ) 02/04/[address] [place] [address] Heaven Otto ANP April recall from Last 3 Months Immunizations Immunization Administration Dates Next Due DTP 06/13/1983,03/22/1983,1982 DTaP 08/29/1984 Hep A, ped/adol, 2 dose 03/06/1996 Hib (HbOC) 02/11/1987 IPV 09/05/1984, 4,06/13/1983,1982 Influenza injectable quadriv alent preservative free 06/02/2020,04/29/2019,04/25/2018 Influenza, IIV3, injectable 05/24/2007, 6 Influenza, Split (incl. mariana fied surface antigen) 04/23/2012 Influenza, seasonal, injecta ble, preservative free 05/01/2025,04/25/2024 MMR 10/19/1994,01/31/1984 Moderna Covid-19 Vaccine 12+ 12/28/2020,12/01/19 21 TD (adult), 2 Lf tetanus tox oid, preservative free, adsorbed 06/25/1990 Tdap 05/01/2025,07/06/2009 Varicella 05/27/2007 Social History Tobacco Use Types Packs/Day Years Used Date Smoking Tobacco: Former Cigarettes 1 15 Passive Smoke Exposure: Past Smokeless Tobacco: Never Tobacco Cessation:Counseling Given: Not Answered Alcohol Use Standard Drinks/Week Comments Yes 0 [...] Orientation Straight 05/22/2022 10 :15 AM EDT Last Filed Vital Signs Vital Sign Reading [...] Mass Index 23.9 05/01/2025 2:47 PM EDT Plan of Treatment Health Maintenance Due Date Last Done Comments Hepatitis A Vaccines (2 of 2 - 2-dose series) 09/06/1996 03/06/1996 Family Planning (PISQ) 1997 HPV Vaccines (1 - 3-dose series) 1997 Pneumococcal Vaccine: Pediatrics (0 to 5 Years) and At-Risk Patients (6 to 49) Years (1 of 2 - PCV) 2001 Dental Oral Exam 05/04/2012 11/02/2011 Dental Prophylaxis 05/02/2024 10/31/2023, 03/03/2011 Dental X-Ray: Bitewings 10/31/2024 10/31/19 24, 08/16/2023, 12/04/2008 COVID-19 Vaccine ( season) 2025 12/28/2020, 11/30/2020 Alcohol/Substance Use Screening 06/25/2025 06/25/2024 Mammogram 12/11/2025 12/12/2023, 12/12/2023 SDOH Screening 04/24/2026 04/24/2025 Depression Screening 05/01/2026 05/01/2025, 05/01/20 25 Disability Screening 05/01/2026 05/01/2025 Tobacco Screening 05/01/2026 05/01/2025 Dental X-Ray: Full Mouth 10/31/2026 10/31/2023 Cervical Cancer Screening 08/03/2027 HPV/Cotest 08/03/2027 08/03/2022, 12/25/2017 Pap Smear 12/04/2028 12/05/2023, 08/03/2022 Zoster Vaccines (1 of 2) 2032 DTaP/Tdap/Td Vaccines (8 - Td or Tdap) 05/01/2035 05/01/2025, 07/06/2009, 06/25/1990, Additional history exists RSV Patients and Patients Aged 60 years or older (1 - 1-dose 75+ series) 2057 IPV Vaccines Completed 09/05/1984, 07/24, 06/13/1983, Additional history exists HIB Vaccines Completed 02/11/1987 HIV Screening Completed 04/25/2024, 07/23, 09/09/2020, Additional history exists Hepatitis C Screening Completed 04/25/2024 , 04/25/2024, 08/03/2022, Additional history exists Influenza Vaccine Completed 05/01/2025, , 06/02/2020, Additional history exists Hepatitis B Vaccines Discontinued Meningococcal B Vaccine Aged Out No l onger eligible based on patient's age to complete this topic Meningococcal Vaccine Aged Out No juvencio evette eligible based on patient's age to complete this topic RSV under 20 months Aged Out No longe r eligible based on patient's age to complete this topic Rotavirus Vaccines Aged Out No longer eligible based on patient's age to complete this topic Procedures Procedure Name Priority Date/Time Associated Diagnosis Comments CHLAMYDIA/N. GONORRHOEAE RNA, TMA, UROGENITAL Routine 05/01/2025 3:15 PM EDT Routine screening for STI (sexually transmitted infection) HEPATITIS C ANTIBODY Routine 04/25/2024 2:00 PM EDT HIV 1/2 ANTIGEN/ANTIBODY, FOURTH GENERATION W/RFL Routine 04/25/2024 2:00 PM EDT BI MAMMOGRAM DIAGNOSTIC TOMOSYNTHESIS BILATERAL Routine 12/12/2023 9:17 AM EDT PAP SMEAR Routine 12/05/2023 10:27 AM EDT PROPHYLAXIS - ADULT Routine 10/31/2023 8 :00 AM EDT INTRAORAL - COMPLETE SERIES OF RADIOGRAPHIC IMAGES Routine 10/31/2023 8:00 AM EDT HPV MRNA E6/E7 REFLEX TO HPV 16, 18/45 Routine 08/03/2022 10:34 AM EST PERIODIC ORAL EVALUATION - ESTABLISHED PATIENT Routine 11/02/2011 12:00 AM EDT from Last 3 Months or Most Recently Relevant to Health Maintenance Results * Chlamydia/N. Gonorrhoeae RNA, TMA, Vagina (05/01/2025 3:15 PM EDT) CT PCR NOT DETECTED Not Detect. [facility] Comment:A not detected test result does [...] psychologicalconsequences. NG PCR NOT DETECTED Not Detect. [facility] Comment:A not detected test result does [...] 3:15 PM EDT 05/01/2025 4:20 PM EDT [facility] MICROBIOLOGY - GENERAL ORDER BRITTNEE Final Result Performing Organization Address [facility]/ZIP Co de Phone Number [facility] [address] [place] [phone] * Hepatitis C Ab (04/25/2024 2:00 PM EDT) Pathologist [facility] Hepatitis C Antibody Nonreactive Nonreactive [facility] Comment:Antibodies to HCV no t detected; does not exclude early acuteHCV infection. 04/25/2024 2:00 PM EDT 04/25/2024 3:58 PM EDT [facility] External Data Provider LAB BLOOD ORDERAB LES Final Result Performing Organization Address [facility]/[place] Co de Phone Number [facility] [address] [place] [phone] * HIV-1/2 Antigen and Antibodies, Fourth Generation, with Reflexes (04/25/2024 2:00 PM EDT) HIV AB/AG Nonreactive Nonreactive [facility] Comment:HIV-1 p24 Ag and/or HIV-1/HIV-2 Ab not detected.A test result that is nonreactive does not exclude thepossibility of exposure to or infection with HIV-1 and/orHIV-2. Nonreactive results in this assay for individualswith prior exposure to HIV-1 and/or HIV-2 may be due toantigen and antibody levels that are below the limit ofdetection of this assay.[employer] HIV Ag/Ab Combo assay result andsupplemental assay results should be interpreted inconjunction with the patient's clinical presentation,history and other laboratory results. If the results areinconsistent with clinical evidence, additional testing issuggested to confirm the result. 04/25/2024 2:00 PM EDT 04/25/2024 3:58 PM EDT us Generic External Data Provider LAB BLOOD ORDERAB LES Final Result Performing Organization Address City/State/[place] Co de Phone Number [facility] [address] [place] [phone] * BI Mammogram Diagnostic Tomosynthesis Bilateral (12/12/2023 9:17 AM EDT) Anatomical Region Laterality Modality Breast Bilateral Mammography 12/12/2023 9:17 AM EDT Narrative 12/12/2023 10:40 AM EDT [address] [place] [address] Mammography Report Signed Patient: Becki Torres MR#: [id number] 9 : 1980 Acct:[id number] Age/Sex: 43 / F ADM Date: 12/12/23 Loc: HO.MAMMO Attending Dr: Susan Deleon CNM Ordering Physician: Susan Deleon CNM Results: 2Benign Findings Date of Service: 12/12/23 Follow Up: 1 Year From Orig ina Mammogram Procedure(s): MM tomosynthesis diagnostic BI Accession Number(s): [id number] cc: Susan Deleon CNM; OTTO,HEAVEN NUCLEAR SCIENTIST EXAMINATION: MM DIAGNOSTIC DIGITAL BREAST TOMOSYNTHESIS, BILATERAL US BREAST LIMITED, BILATERAL MAMMOGRAPHY: CLINICAL INFORMATION: 43-year-old female complaining of bilateral palpable foci at the 1:00 axes of both breasts, and also cysts smaller firm areas right breast 9:00 to 11:00 axis. Baseline mammogram. COMPARISON: Mammography: None. Baseline. TECHNIQUE: Digital breast tomosynthesis is performed in both the craniocaudal and mediolateral oblique views along with computer-aided detection (CAD). Synthesized 2D images are generated from the tomosynthesis. In addition, full-field bilateral 3-D ML views were also included. FINDINGS: The breasts are extremely dense, which lowers the sensitivity of mammography (ACR BI-RADS breast composition Category d). Both breasts were marked with BB markers by the technologist with the aid of the patient, at the bilateral 1:00 axes, and the right 9:00 axis. No definite underlying mass or distortion can be identified in either breast which can be reliably distinguished from the extremely dense breast parenchyma. No suspicious calcifications identified. No skin or axillary abnormalities. ULTRASOUND: CLINICAL INFORMATION: As above. COMPARISON: None. Baseline exam. TECHNIQUE: Targeted sonographic evaluation was performed using a high frequency linear transducer. Attention to both breasts in the palpable regions of concern upper outer quadrants was performed. Selected archived documentation. FINDINGS: RIGHT BREAST: -There is extremely dense fibrocystic tissue present. There are numerous small cysts, the largest a bilobed simple cyst at the 10:00 axis, 4 cm from the nipple, without complicating features. A second 1.0 cm simple cyst is present at the 1:00 axis, 4 cm from the nipple. There is a minimally complex circumscribed cyst with good through transmission at 10:00, 8 cm from the nipple, measuring 7 mm in diameter, benign. The patient appears to be feeling dense ridges of tissue as opposed to these small cysts. LEFT BREAST: -There is extremely dense fibrocystic tissue present. There are numerous small cysts, the largest measuring 9 mm in diameter by 1.0 cm, simple and benign. Several smaller cysts are present. The patient appears to be feeling a ridge of fibrocystic tissue as opposed to individual cysts. There are no suspicious regions in either breast, suspicious masses, or abnormal regions of shadowing. MM/MM tomosynthesis diagnostic BI IMPRESSION: -There are no findings suspicious for malignancy in either breast. There is extremely dense breast tissue present. -Palpable abnormalities appear to be related to fibrocystic ridges of tissue as opposed to individual simple cyst. There are no suspicious abnormalities. -Recommend clinical management. Otherwise recommend returning to routine screening in one year. -In patients with this breast density, screening breast ultrasound may serve as a valuable screening adjunct, depending on risk factors and usually performed 6 months in between screening mammography exams. OVERALL ASSESSMENT: Mammography: BI-RADS 2 - Benign Findings Ultrasound: BI-RADS 2 - Benign Findings RECOMMENDATION: 1 year F/U Results were provided to the patient at time of visit by the technologist. This patient's information was entered into a reminder system with a target due date for their next mammogram. Dictated By: Edwardo Whitten MD Signed By: <Electronically signed by Edwardo Whitten MD in OV> 12/12/23 1035 DD/ 0917 TD/TT: Firearms Inspector: Procedure Note Donotuseinterpreter, Image - 12/12/2023 [facility] [address] [place] [address] Mammography Report Signed Patient: Gonzalo Torres#: [id number] 9 : 1980Acct:[id number] Age/Sex: 43 / FADM Date: 12/12/23 Loc: .MAMMO Attending Dr: Susan Deleon CNM Ordering Physician: Susan Deleonesults: 2Benign Findings Date of Service: 12/12/23Follow Up: 1 Year From Orig ina Mammogram Procedure(s): MM tomosynthesis diagnostic BI Accession Number(s): [id number] cc: Susan Deleon CNM; HEAVEN OTTO NP EXAMINATION: MM DIAGNOSTIC DIGITAL BREAST TOMOSYNTHESIS, BILATERAL US BREAST LIMITED, BILATERAL MAMMOGRAPHY: CLINICAL INFORMATION: 43-year-old female complaining of bilateral palpable foci at the 1:00 axes of both breasts, and also cysts smaller firm areas right breast 9:00 to 11:00 axis. Baseline mammogram. COMPARISON: Mammography: None. Baseline. TECHNIQUE: Digital breast tomosynthesis is performed in both the craniocaudal and mediolateral oblique views along with computer-aided detection (CAD). Synthesized 2D images are generated from the tomosynthesis. In addition, full-field bilateral 3-D ML views were also included. FINDINGS: The breasts are extremely dense, which lowers the sensitivity of mammography (ACR BI-RADS breast composition Category d). Both breasts were marked with BB markers by the technologist with the aid of the patient, at the bilateral 1:00 axes, and the right 9:00 axis. No definite underlying mass or distortion can be identified in either breast which can be reliably distinguished from the extremely dense breast parenchyma. No suspicious calcifications identified. No skin or axillary abnormalities. ULTRASOUND: CLINICAL INFORMATION: As above. COMPARISON: None. Baseline exam. TECHNIQUE: Targeted sonographic evaluation was performed using a high frequency linear transducer. Attention to both breasts in the palpable regions of concern upper outer quadrants was performed. Selected archived documentation. FINDINGS: RIGHT BREAST: -There is extremely dense fibrocystic tissue present. There are numerous small cysts, the largest a bilobed simple cyst at the 10:00 axis, 4 cm from the nipple, without complicating features. A second 1.0 cm simple cyst is present at the 1:00 axis, 4 cm from the nipple. There is a minimally complex circumscribed cyst with good through transmission at 10:00, 8 cm from the nipple, measuring 7 mm in diameter, benign. The patient appears to be feeling dense ridges of tissue as opposed to these small cysts. LEFT BREAST: -There is extremely dense fibrocystic tissue present. There are numerous small cysts, the largest measuring 9 mm in diameter by 1.0 cm, simple and benign. Several smaller cysts are present. The patient appears to be feeling a ridge of fibrocystic tissue as opposed to individual cysts. There are no suspicious regions in either breast, suspicious masses, or abnormal regions of shadowing. MM/MM tomosynthesis diagnostic BI IMPRESSION: -There are no findings suspicious for malignancy in either breast. There is extremely dense breast tissue present. -Palpable abnormalities appear to be related to fibrocystic ridges of tissue as opposed to individual simple cyst. There are no suspicious abnormalities. -Recommend clinical management. Otherwise recommend returning to routine screening in one year. -In patients with this breast density, screening breast ultrasound may serve as a valuable screening adjunct, depending on risk factors and usually performed 6 months in between screening mammography exams. OVERALL ASSESSMENT: Mammography: BI-RADS 2 - Benign Findings Ultrasound: BI-RADS 2 - Benign Findings RECOMMENDATION: 1 year F/U Results were provided to the patient at time of visit by the technologist. This patient's information was entered into a reminder system with a target due date for their next mammogram. Dictated By: Edwardo Whitten MD Signed By: <Electronically signed by Edwardo Whitten MD in OV> 12/12/23 1035 DD/ 0917 TD/TT: Firearms Inspector: [facility] External Provider IMG BI PROCEDURES Final Result * Pap Smear (12/05/2023 10:27 AM EDT) 12/05/2023 10:2 7 AM EDT 12/06/2023 10:15 AM EDT [facility] - 12/26/2023 4:45 PM EDT ----- ------- Name: Becki Torres Age/Sex: 43/F : 1980 Unit#: [id number] Attend Dr: Susan Deleon Heidi Re12/05/23 Status: DEP REF Location: .LAB Disch: ----- ------- SPEC : [id number] RECD: 12/06/23-1015 STATUS: AURELIA BORREGO NUM: [id number] GEOVANNA: 12/05/23-1027 [facility] DR: Susan Deleon [facility] ENTERED: 12/06/23 SP TYPE: Pap Smr OTHR DR: HEAVEN OTTO NP ORDERED: Pap Smear Interpretation Satisfactory for evaluation. Atypical squamous cells of undetermined significance, rare. Fungal organisms consistent with Sweta species. HPV mRNA E6/E7: DETECTED This assay detects E6/E7 viral messenger RNA (mRNA) from 14 high-risk HPV types (16, 18, 31, 33, 35, 39, 45, 51, 52, 56, 58, 59, 66, 68) HPV Type 16 RNA: Not Detected HPV Type 18/45 RNA: Not Detected HPV testing performed by [facility], [place], [place]. See reference laboratory portion of the EMR for entire report. Clinical Information LMP:11/03/23 Previous PAP test:2017 ABN, 2008 DOROTHY 1, 2007 ABN Material Received ThinPrep-Cervical Copies To: Susan Deleon [address] [place] [address] HEAVEN OTTO NP [address] [place] [id number] ----- ------- Signed (signature on file) Jil Alejandro MD 12/26/23 1645 ----- ------- END OF REPORT us Generic External Data Provider LAB CYTOLOGY ORDE RABLES Final Result Performing Organization Address City/[facility]/ZIP Co de Phone Number [facility] [address] [place] [phone] * HPV mRNA E6/E7 w/Reflex to HPV Genotypes 16, 18/45 (08/03/2022 10:34 AM EST) HPV nRNA E6/E7 Not Detected Not Detected [facility] Comment:Methodology: Transcr iption-Mediated AmplificationThis assay detects E6/E7 viral messenger RNA (mRNA) from 14high-risk HPV types (16,18,31,33,35,39,45,51,52,56,58,59,66,68).Cervical sources are required for HPV testing.If a vaginal source from a patient who has had atotal hysterectomy with removal of cervix wassubmitted, please contact the testing laboratoryfor alternative testing options.For additional information, please refer [email or web address].[employer]/faq/XLO337d1(This link if provided for information/educational purposes only.)THIS TEST WAS PERFORMED AT:[facility] [place] [address] ([facility])[place] [phone] HERNANDEZ MD HPV mRNA E6/E7 [facility] HPV 16 RNA [facility] HPV 18/45 RNA [facility] 08/03/2022 10:3 4 AM EST 08/03/2022 12:45 PM EST [facility] External Provider LAB CYT OLOGY ORDERABLES Final Result Performing Organization Address City/[facility]/ZIP Co de Phone Number [facility] [address] [place] [phone] [phone] from Last 3 Months or Most Recently Relevant to Health Maintenance Insurance [facility] 3 DENTAL - HSN PARTIAL (MEDICAID) [facility] Care Teams Check Totaler Relationship Specialty Start Date End Date Heaven Otto ANP [address] [place] [address] PCP - General Family Medicine 03/22/20
--- OUTSIDE RECORDS SUMMARY | 2025-05-06 09:52 | XMS_ITS | Encounter Summary ---
Author Organization [employer] Address [address] [facility] [address] [place] [address] Care Team Providers Care Bull Fiddle Player Name Role Phone Adelia Light Primary Care Provider [phone] Reason for Visit * Reason Onset Date Comments Med Refill 09/22/2024 Encounter Details Date Type Department Care Team (Late st Contact Info) Description 09/22/2024 Telephone [facility] [address] [place], [place] [phone] Adelia Light ANP [address] [place], [place] [phone] Med Refill Social History Tobacco Use Types Packs/Day Years Used Date Smoking Tobacco: Former Cigarettes 1 15 Passive Smoke Exposure: Past Smokeless Tobacco: Never Alcohol Use Standard Drinks/Week Comments Yes 0 (1 standard drink = 0.6 oz pur e alcohol) socially Depression Answer Date Recorded Patient Health Questionnaire-9 Score 14 04/25/2024 Patient Health Questionnaire-9 Score 14 04/25/2024 Last PHQ-9: Questionnaire Data Not on file [...] to shut off services in your home? Yes 04/25/2024 Depression Answer Date Recorded Patient Health Questionnaire-2 Score 4 04/25/2024 Internet Access Answer Date Recorded Internet Access Q1 Yes 04/25/2024 Internet Access Q2 Not on file 04/25/2024 Comments Unknown Sex and Gender Information Value Date Recorded Sex Assigned at Female 05/22/2022 10:15 AM EDT Legal Sex Female 10:15 AM EDT Gender Identity Female 05/22/2022 10:15 AM EDT Sexual Orientation Straight 05/22/2022 10 :15 AM EDT documented as of this encounter Miscellaneous Notes * Telephone Encounter - Melody Ordonez - 09/22/2024 3:12 PM EST TC from pt requesting medication refill. Medications needing refill : traMADol (Ultram) 50 MG tablet To be sent to: [facility]/pharmacy #[id number] - [id number] documented in this encounter Plan of Treatment Not on file documented as of this encounter Visit Diagnoses Not on filedocumented in this encounter Additional Health Concerns Assessment Noted Time PHQ-9 Depression Total Score: 14 024 11:23 AM EDT documented as of this encounter Care Teams Bull Fiddle Player Relationship Specialty Start Date End Date Adelia Light ANP [address] [place] [id number] PCP - General Family Medicine 03/22/20 documented as of this encounter
--- OUTSIDE RECORDS SUMMARY | 2025-05-06 09:52 | XMS_ITS | Encounter Summary ---
Author Organization [employer] Address [address] [facility] 7[address] [place] [address] Care Team Providers Care Used Car Make Ready Worker Name Role Phone Adelia Light Primary Care Provider [phone] Encounter Details Date Type Department Care Team (Late st Contact Info) Description 05/04/2025 Results Follow-Up [facility] [address] [place], [place] [phone] Adelia Light ANP [address] [place] [address] Chlamydia/N. Gonorrhoeae RNA, TMA, Vagina Social History Tobacco Use Types Packs/Day Years [...] documented as of this encounter Care Teams Used Car Make Ready Worker Relationship Specialty Start Date End Date Adelia Light ANP [address] [place] [id number] PCP - General Family Medicine 03/22/20 documented as of this encounter
--- OUTSIDE RECORDS SUMMARY | 2025-05-06 09:53 | XMS_ITS | Encounter Summary ---
Author Organization [employer] Address [address] [facility] [address] [place] [address] Care Team Providers Care Automatic Shirring Machine Operator Name Role Phone Adelia Light Primary Care Provider [phone] Reason for Visit * Reason Onset Date Comments Med Refill 10/17/2023 Encounter Details Date Type Department Care Team (Late st Contact Info) Description 10/17/2023 Telephone [facility] MED[facility]INE [address] [place], [place] [phone] Adelia Light ANP [address] [place], [place] [phone] Med Refill Social History Tobacco Use Types Packs/Day Years Used Date Smoking Tobacco: Some Days Cigarettes 1 15 Smokeless Tobacco: Never Alcohol Use Standard Drinks/Week Comments Yes 0 (1 standard drink = 0.6 oz pur e alcohol) socially Depression Answer Date Recorded Patient Health Questionnaire-9 Score 22 06/23/2022 Housing Stability Answer Date Recorded What is your housing situation today? I have docraya em 05/09/[address] you li ve. Do you have problems with any of the following? None of the above 05/09/2023 Food Insecurity Answer Date Recorded Within the past 12 months, y ou worried that your food would run out before you got money to buy more: Never True 05/09/2023 Within the past 12 months,th e food you bought just didn't last and you didn't have enough money to get more: Never True Transportation Answer Date Recorded In the past 12 months, has l ack of transportation kept you from medical appts, meetings, work or from getting things needed for daily living? No 05/09/2023 Utilities Answer Date Recorded In the past 12 months, has t he electric, gas, oil or water company threatened to shut off services in your home? No 05/09/2023 Depression Answer Date Recorded Patient Health Questionnaire-2 Score 6 06/23/2022 Comments Unknown Sex and Gender Information Value Date Recorded Sex Assigned at Female 05/22/2022 10:15 AM EDT Legal Sex Female 10:15 AM EDT Gender Identity Female 05/22/2022 10:15 AM EDT Sexual Orientation Straight 05/22/2022 10 :15 AM EDT documented as of this encounter Miscellaneous Notes * Telephone Encounter - Telma Aparicio - 10/17/2023 3:23 PM EDT TC from pt requesting medication refill. Pt requested refill yesterday but was given tramadol instead. Medications needing refill : oxyCODONE-acetaminophen (Percocet) 5-325 MG tablet To be sent to: [facility]/pharmacy #[id number] - [id number] documented in this encounter Plan of Treatment Not on file documented as of this encounter Visit Diagnoses Not on filedocumented in this encounter Additional Health Concerns Assessment Noted Time PHQ-9 Depression Total Score: 22 022 2:09 PM EST documented as of this encounter Care Teams Automatic Shirring Machine Operator Relationship Specialty Start Date End Date Adelia Light ANP [address] [place] [address] PCP - General Family Medicine 03/22/20 documented as of this encounter
--- OUTSIDE RECORDS SUMMARY | 2025-05-06 09:53 | XMS_ITS | Encounter Summary ---
Author Organization [employer] Address [address] [facility] [address] [place] [address] Care Team Providers Care Warehouse General Laborer Name Role Phone Adelia Light GIOVANI Primary Care Provider [phone] Reason for Visit * Reason Comments Med Refill Encounter Details Date Type Department Care Team (Late st Contact Info) Description 04/10/2023 Refill [facility] [address] [place], [place] [phone] Cheryl Umana MD [address] [place], [place] [phone] Lumbar radiculopathy Social History Tobacco Use Types Packs/Day Years [...] encounter Miscellaneous Notes * Telephone Encounter - Tere Schultz RN - 04/13/2023 11:22 AM EDT Med request already queued to PCP. documented in this encounter Plan of Treatment Not on file documented as of this encounter Visit Diagnoses Diagnosis Lumbar radiculopathy Thoracic or lumbosacral neuritis or radiculitis, unspecified documented in this encounter Additional Health Concerns Assessment Noted Time PHQ-9 Depression Total Score: 22 022 2:09 PM EST documented as of this encounter Care Teams Warehouse General Laborer Relationship Specialty Start Date End Date Adelia Light ANP [address] [place] [address] PCP - General Family Medicine 03/22/20 documented as of this encounter
--- OUTSIDE RECORDS SUMMARY | 2025-05-06 09:53 | XMS_ITS | Encounter Summary ---
Author Organization [employer] Address [address] [facility] [address] [place] [address] Care Team Providers Care Enrollment Management Vice President Name Role Phone Adelia Light Primary Care Provider [phone] Encounter Details Date Type Department Care Team (Late st Contact Info) Description 06/09/2022 Abstract [facility] MEDICINE [address] [place], [place] [phone] Provider, MD Regino Social History Tobacco Use Types Packs/Day Years Used Date Smoking Tobacco: Never Assessed Comments Unknown Sex and Gender Information Value Date Recorded Sex Assigned at Female 05/22/2022 10:15 AM EDT Legal Sex Female 10:15 AM EDT Gender Identity Female 05/22/2022 10:15 AM EDT Sexual Orientation Straight 05/22/2022 10 :15 AM EDT documented as of this encounter Plan of Treatment Not on file documented as of this encounter Visit Diagnoses Not on filedocumented in this encounter Care Teams Enrollment Management Vice President Relationship Specialty Start Date End Date Adelia Light ANP [address] [place] [address] PCP - General Family Medicine 03/22/20 documented as of this encounter
[2025-05-06 11:17] LABS: MANUAL DIFF FLAG NO
[2025-05-06 11:27] LABS: Hematocrit 38.5 % (37.0-47.0); Hemoglobin 12.0 g/dl (12.0-16.0); Imm Gran Abs Auto 0.02 X10*3/uL (0.00-0.03); Imm Gran Pct Auto 0.3 % (0.0-0.4); Lymphocytes Absolute Auto 1.7 X10*3/uL (1.2-4.9); Mean Corpuscular HGB Conc 31.2 g/dl (31.0-35.0); Mean Corpuscular Hemoglobin 27.7 pg (27.0-33.0); Mean Corpuscular Volume 88.9 fL (80.0-98.0); NRBC Abs Auto 0.000 X10*3/uL (0.0-0.012); NRBC Pct Auto 0.0 /100WBC (0.0-0.2); Platelet Count 271 X10*3/uL (160-400); Red Blood Count 4.33 X10*6/uL (4.20-5.50); White Blood Count 7.4 X10*3/uL (4.8-10.8)
[2025-05-06 12:01] LABS: Alanine Aminotransferase 11 U/L (0-31); Albumin Level 4.5 g/dL (3.5-5.0); Alkaline Phosphatase 48 U/L (39-117); Anion Gap 9 (12-20); Aspartate Amino Transferase 19 U/L (5-31); Blood Urea Nitrogen 16 mg/dL (9-16); Calcium 9.1 mg/dL (8.4-10.2); Carbon Dioxide 30 mmol/L (22-29); Chloride 107 mmol/L (96-108); Cholesterol 137 mg/dL (<200); Estimated Glomerular Filt Rate > 60; HDL Cholesterol 54 mg/dL (>40); Potassium 4.1 mmol/L (3.3-5.1); Sodium 142 mmol/L (135-145); Total Protein 7.1 g/dL (6.5-8.0); Triglycerides 36 mg/dL (<150)
[2025-05-06 12:08] LABS: Vitamin B12 421 pg/mL (200-900)
[2025-05-07 04:16] LABS: Syphilis Screen Nonreactive (Nonreactive)
[2025-05-07 05:06] LABS: HIV Num 1 0.05 S/CO (0.00-0.99); ~HepC Num1 0.28 S/CO (0.00-0.79); ~Hepatitis C Antibody Nonreactive (Nonreactive)
== END 2025-05-06 09:03 | disposition home or self-care (01) ==
LOC: HO.HHCL 09:02
PROVIDERS: PCP Nurse Practitioner Primary Care; Visit Provider Nurse Practitioner Primary Care
DX: Z00.00 Encounter for general adult medical examination without abnormal findings (principal); Z13.220 Encounter for screening for lipoid disorders; Z11.3 Encounter for screening for infections with a predominantly sexual mode of transmission; Z11.59 Encounter for screening for other viral diseases; Z11.4 Encounter for screening for human immunodeficiency virus [HIV]; E03.9 Hypothyroidism, unspecified; E55.9 Vitamin D deficiency, unspecified; E53.8 Deficiency of other specified B group vitamins
CPT/HCPCS: 36415; 80053; 80061; 82306; 82607; 84443; 85025; 86780; 86803; 87389